=== PATIENT | female | born 1950 | race Caucasian/White ===

== ENCOUNTER 2017-06-02 10:28 | Inpatient (IN) | payer MEDICARE, MEDICAID ==
[~2017-06-02] VITALS: Ht 167.6 cm; Wt 82.8 kg
[~2017-06-02 10:28] MED LIST: ACET-784 PO; AMLO2.5T29 PO; ASPI-556 PO; AUD NEB; B CO1CAP4 PO; BIMA12.5OS OU; BISA-72 PR; BRIM155OS OU; CALC-866 PO; CHOL3000 PO; CLON0.1T PO; DIAZ2TAB3 PO; DSS100 PO; EPOE10I SQ; FERR-89 PO; FOLI1CAP2 PO; GABA-531 PO; HEP5KI SQ; HYDR-3965 PO; INSU100C6 SQ; IPRNEB IH; METO5TAB95 PO; PANT40TA PO; TIMO10DR28 OU; XALA2.5OS OU; [UNRECOGNIZED DRUG - CODE] SQ
[2017-06-02] MEDS ORDERED: 0.9% SODIUM CHLORIDE 10 ML SYRINGE IVP PRN (10:45)
[2017-06-02] MEDS ORDERED: IPRATROPIUM BROMIDE 0.5 MG/2.5 ML NEB SOLUTION NEB ONE (10:45)
[2017-06-02] MEDS ORDERED: ALBUTEROL SULFATE 5 MG/ML 20 ML NEB SOLN [BULK] NEB ONE (10:45)
[2017-06-02] MEDS ORDERED: AMLO-511 PO (10:48)
[2017-06-02] MEDS ORDERED: 0.9% SODIUM CHLORIDE 15 ML NEB SOLUTION NEB ONE (10:49)
[2017-06-02 11:12] LABS: BASOPHILS % (AUTO) 0.3 % (0.0-2.0); EOSINOPHILS % (AUTO) 0.4 % (1.0-6.0); HEMATOCRIT 38.4 % (36-46); HEMOGLOBIN 11.7 g/dL (12.0-16.0); LYMPHOCYTES # (AUTO) 0.6 K/uL (1.0-4.8); LYMPHOCYTES % (AUTO) 7.3 % (22.0-44.0); MEAN CORPUSCULAR HEMOGLOBIN 31.8 pg (26.0-34.0); MEAN CORPUSCULAR HGB CONC 30.4 G/dL (31.0-37.0); MEAN CORPUSCULAR VOLUME 105 fL (80-100); MONOCYTES # (AUTO) 0.5 K/uL (0.1-1.0); MONOCYTES % (AUTO) 6.2 % (2.0-9.0); NEUTROPHILS # (AUTO) 6.7 K/uL (1.8-7.7); PLATELET COUNT (AUTO) 138 K/uL (150-450); RED BLOOD CELL COUNT(AUTO) 3.67 MIL/uL (4.00-5.20); RED CELL DISTRIBUTION WIDTH 17.2 % (11.5-14.5)
[2017-06-02 11:18] LABS: ABG A-A DIFF O2 519.3 mmHg (10-20.0); ABG BASE EXCESS -1.2 mmol/L (-2.0-3.0); ABG CARBOXYHEMOGLOBIN 4.3 % (0.0-1.5); ABG HCO3 21.8 mmol/L (22.0-26.0); ABG METHEMOGLOBIN 0.2 % (0.0-1.5); ABG OXYGEN CONTENT 15.8 mL/dL (15.0-23.0); ABG OXYGEN SATURATION 96.6 % (95.0-98.0); ABG OXYHEMOGLOBIN 92.3 % (94.0-100.0); ABG TOTAL HEMOGLOBIN 12.1 G/dL (12.0-18.0); PO2, ARTERIAL BG 97.3 mmHg (79.0-87.0); SOURCE, BLOOD GAS ARTERIAL; TEMPERATURE, FAHRENHEIT, BG 99.3 FAHREN (96.0-98.6)
[2017-06-02 11:19] LABS: ABG PCO2 95 mmHg (35-45); ABG PH 7.095 (7.35-7.450); O2 DEVICE,BLOOD GAS NON REBREATHER (ROOM AIR); SITE, BLOOD GAS LFT RADIAL
[2017-06-02 11:20] LABS: NEUTROPHILS % (AUTO) 85.8 % (40.0-70.0)
[2017-06-02 11:27] LABS: INR 1.2 (0.9-1.1); PROTHROMBIN TIME 12.4 SEC (9.4-11.6)
[2017-06-02 11:32] LABS: CALCIUM, TOTAL 8.7 mg/dL (8.8-10.5); CREATININE 3.41 mg/dL (0.60-1.30); POTASSIUM 5.3 mmol/L (3.5-5.1)
[2017-06-02 11:39] LABS: ALBUMIN 3.5 g/dL (3.4-5.0); BILIRUBIN,TOTAL 0.5 mg/dL (0.1-1.0)
[2017-06-02] MEDS ORDERED: RAPID SEQUENCE KIT [RSI] 1 EACH KIT ONE (11:57)
[2017-06-02] MEDS ORDERED: SUCCINYLCHOLINE CHLORIDE 20 MG/ML 10 ML VIAL ONE (11:58)
[2017-06-02] MEDS ORDERED: ETOMIDATE 2 MG/ML 10 ML VIAL IVP ONE (12:00)
[2017-06-02] MEDS ORDERED: VECURONIUM BROMIDE 10 MG/VIAL IVP ONE (12:00)
[2017-06-02 12:08] LABS: INFLUENZA TYPE A NEGATIVE FOR TYPE A (NEGATIVE); INFLUENZA TYPE B NEGATIVE FOR TYPE B (NEGATIVE)
[2017-06-02] MEDS ORDERED: VANCOMYCIN HCL 1 GM/D5% WATER 200 ML IV ONE (12:15)
[2017-06-02] MEDS ORDERED: PIPERACILLIN/TAZO 3.375 GM/D5W 50 ML IV ONE (12:15)
[2017-06-02 12:29] LABS: LACTIC ACID 0.7 mmol/L (0.4-2.0)
[2017-06-02 13:00] LABS: THYROID STIMULATING HORMONE 0.46 uIU/mL (0.36-3.74)
[2017-06-02] MEDS ORDERED: NITROGLYCERIN 2% (1 GM=INCH) PACKET TP ONE (13:00)
[2017-06-02] MEDS ORDERED: GENTAMICIN 120 MG/NACL ISO-OSM 100 ML IV ONE (13:00)
[2017-06-02 13:56] LABS: ABG A-A DIFF O2 170.4 mmHg (10-20.0); ABG BASE EXCESS -2.5 mmol/L (-2.0-3.0); ABG HCO3 22.6 mmol/L (22.0-26.0); ABG METHEMOGLOBIN 0.1 % (0.0-1.5); ABG OXYGEN CONTENT 14.8 mL/dL (15.0-23.0); ABG OXYGEN SATURATION 95.9 % (95.0-98.0); ABG PCO2 39 mmHg (35-45); ABG PH 7.385 (7.35-7.450); ABG TOTAL HEMOGLOBIN 11.4 G/dL (12.0-18.0); PO2, ARTERIAL BG 70.2 mmHg (79.0-87.0); SOURCE, BLOOD GAS ARTERIAL; TEMPERATURE, FAHRENHEIT, BG 99.2 FAHREN (96.0-98.6)
[2017-06-02 13:57] LABS: O2 DEVICE,BLOOD GAS VENTILATOR (ROOM AIR); PEEP,BG 5 cm H2O; SITE, BLOOD GAS LFT RADIAL; VT, ABG 500 ml
[2017-06-02] MEDS: PROPOFOL 1000 MG/ISO-OSM 100 ML IV PRN ×2 (14:28→21:40)
[2017-06-02] MEDS ORDERED: ACETAMINOPHEN 650 MG RECTAL SUPPOSITORY PR ONE (15:45)
[2017-06-02 16:32] LABS: PLATELET MORPHOLOGY COMMENT DECREASED
[2017-06-02] MEDS ORDERED: IBUPROFEN 800 MG TABLET PO ONE (18:00)
[2017-06-02] MEDS ORDERED: MAGNESIUM HYDROXIDE SUSPENSION 30 ML UDCUP PO PRN (18:45)
[2017-06-02] MEDS ORDERED: BISACODYL 10 MG RECTAL RECTAL SUPPOSITORY PR PRN (18:45)
[2017-06-02] MEDS ORDERED: ONDANSETRON HCL 4 MG/2 ML VIAL IVP PRN (18:45)
[2017-06-02] MEDS ORDERED: DEXTROSE 50%-WATER 25 GM/50 ML SYRINGE IVP PRN (19:00)
[2017-06-02 20:50] VITALS: BP 140/80
[2017-06-02] MEDS: BIMATOPROST 0.01% 2.5 ML OPHTHALMIC SOLUTION OU SCH (21:37)
[2017-06-02] MEDS: HEPARIN SODIUM,PORCINE 5,000 UNITS/ML VIAL SQ SCH (21:37)
[2017-06-02] MEDS: BRIMONIDINE TARTRATE 0.15% 5 ML OPHTHALMIC SOLUTION OU SCH (21:37)
[2017-06-02 22:00] VITALS: BP 145/82
[2017-06-03] VITALS (9 sets, daily range): BP systolic 96–182; BP diastolic 69–94
[2017-06-03 05:22] LABS: BASOPHILS # (AUTO) 0.04 K/uL (0.00-0.20); BASOPHILS % (AUTO) 0.7 % (0.0-2.0); EOSINOPHILS # (AUTO) 0.15 K/uL (0.00-0.70); EOSINOPHILS % (AUTO) 2.55 % (1.0-6.0); HEMATOCRIT 35.4 % (36-46); HEMOGLOBIN 10.8 g/dL (12.0-16.0); LYMPHOCYTES # (AUTO) 0.8 K/uL (1.0-4.8); LYMPHOCYTES % (AUTO) 13.9 % (22.0-44.0); MEAN CORPUSCULAR HEMOGLOBIN 31.2 pg (26.0-34.0); MEAN CORPUSCULAR HGB CONC 30.5 G/dL (31.0-37.0); MEAN CORPUSCULAR VOLUME 102 fL (80-100); MONOCYTES # (AUTO) 0.6 K/uL (0.1-1.0); MONOCYTES % (AUTO) 10.2 % (2.0-9.0); NEUTROPHILS # (AUTO) 4.4 K/uL (1.8-7.7); NEUTROPHILS % (AUTO) 72.7 % (40.0-70.0); PLATELET COUNT (AUTO) 140 K/uL (150-450); RED BLOOD CELL COUNT(AUTO) 3.47 MIL/uL (4.00-5.20); RED CELL DISTRIBUTION WIDTH 16.5 % (11.5-14.5)
[2017-06-03] MEDS: PROPOFOL 1000 MG/ISO-OSM 100 ML IV PRN ×3 (05:28→18:17)
[2017-06-03 05:47] LABS: ANION GAP 9 mmol/L (8-16); CALCIUM, TOTAL 8.5 mg/dL (8.8-10.5); CARBON DIOXIDE 25 mmol/L (22-29); CHLORIDE 99 mmol/L (98-107); CHOL/HDL RATIO 1.7 (3.9-5.7); CHOLESTEROL 57 mg/dL (131-200); CREATINE KINASE, TOTAL 15 U/L (26-192); CREATININE 4.03 mg/dL (0.60-1.30); FREE T4 (FREE THYROXINE) 1.11 ng/dL (0.76-1.46); GLOMERULAR FILTR. RATE CALC 11 mL/min (>60); GLUCOSE,RANDOM 115 mg/dL (70-110); HDL CHOLESTEROL 34 mg/dL (40-60); LDL CHOL (CALC.) 2 mg/dL (0-130); POTASSIUM 4.6 mmol/L (3.5-5.1); SODIUM SERUM 133 mmol/L (136-145); TRIGLYCERIDES 103 mg/dL (15-150); UREA NITROGEN, BLOOD 38 mg/dL (7-18)
[2017-06-03 06:09] LABS: HEMOGLOBIN A1C 5.2 % (4.5-6.2)
[2017-06-03 06:12] LABS: THYROID STIMULATING HORMONE 0.21 uIU/mL (0.36-3.74)
[2017-06-03 06:19] LABS: PHOSPHORUS 1.2 mg/dL (2.5-4.9)
[2017-06-03] MEDS ORDERED: SODIUM PHOS,M-BASIC-D-BASIC 20 MEQ in DEXTROSE 5%-WATER 100 ML IV ONE (06:45)
[2017-06-03] MEDS ORDERED: SODIUM CHLORIDE 0.9% 100 ML ONE (08:14)
[2017-06-03] MEDS ORDERED: IOVERSOL 350 MG/ML 100 ML VIAL ONE (08:14)
[2017-06-03] MEDS ORDERED: SODIUM CHLORIDE 0.9% 250 ML IV ONE (08:16)
[2017-06-03] MEDS: HEPARIN SODIUM,PORCINE 5,000 UNITS/ML VIAL SQ SCH ×2 (08:22→21:03)
[2017-06-03] MEDS: PANTOPRAZOLE SODIUM 40 MG/VIAL IVP SCH (08:22)
[2017-06-03] MEDS: DORZOLAMIDE/TIMOLOL 2-0.5% [22.3-6.8MG/ML] 10 ML OPHTHALMIC SOLUTION OU SCH (08:23)
[2017-06-03] MEDS: LATANOPROST 0.005% 2.5 ML OPHTHALMIC SOLUTION OU SCH (08:23)
[2017-06-03] MEDS: BRIMONIDINE TARTRATE 0.15% 5 ML OPHTHALMIC SOLUTION OU SCH ×2 (08:23→21:03)
[2017-06-03 08:39] LABS: FOLATE SERUM 6.3 ng/mL (5.4-)
[2017-06-03 14:05] LABS: ABG A-A DIFF O2 136.7 mmHg (10-20.0); ABG BASE EXCESS -1.2 mmol/L (-2.0-3.0); ABG CARBOXYHEMOGLOBIN 2.9 % (0.0-1.5); ABG HCO3 24.3 mmol/L (22.0-26.0); ABG METHEMOGLOBIN 0.1 % (0.0-1.5); ABG OXYGEN CONTENT 16.3 mL/dL (15.0-23.0); ABG OXYGEN SATURATION 99.1 % (95.0-98.0); ABG OXYHEMOGLOBIN 96.1 % (94.0-100.0); ABG PCO2 28 mmHg (35-45); ABG PH 7.515 (7.35-7.450); ABG TOTAL HEMOGLOBIN 11.9 G/dL (12.0-18.0); PO2, ARTERIAL BG 116.9 mmHg (79.0-87.0); SOURCE, BLOOD GAS ARTERIAL; TEMPERATURE, FAHRENHEIT, BG 98.6 FAHREN (96.0-98.6)
[2017-06-03 14:08] LABS: SITE, BLOOD GAS LFT RADIAL
[2017-06-03 14:09] LABS: O2 DEVICE,BLOOD GAS VENTILATOR (ROOM AIR); PEEP,BG 5 cm H2O; VT, ABG 500 ml
[2017-06-03] MEDS ORDERED: SODIUM CHLORIDE 0.9% 2,000 ML IV ONE (16:52)
[2017-06-03] MEDS ORDERED: VANCOMYCIN HCL 1 GM/D5% WATER 200 ML IV PRN (17:00)
[2017-06-03] MEDS ORDERED: PIPERACILLIN SODIUM/TAZOBACTAM 0.75 GM in DEXTROSE 5%-WATER 50 ML IV PRN (17:00)
[2017-06-03] MEDS: PIPERACILLIN SODIUM/TAZOBACTAM 2.25 GM in DEXTROSE 5%-WATER 50 ML IV SCH (17:57)
[2017-06-03] MEDS: BIMATOPROST 0.01% 2.5 ML OPHTHALMIC SOLUTION OU SCH (21:03)
[2017-06-03] MEDS: APIXABAN 5 MG TABLET PO SCH (21:45)
[2017-06-04] VITALS (12 sets, daily range): BP systolic 114–162; BP diastolic 70–84
[2017-06-04] MEDS: PROPOFOL 1000 MG/ISO-OSM 100 ML IV PRN ×4 (00:15→17:20)
[2017-06-04] MEDS: PIPERACILLIN SODIUM/TAZOBACTAM 2.25 GM in DEXTROSE 5%-WATER 50 ML IV SCH ×3 (00:15→17:05)
[2017-06-04 06:07] LABS: BASOPHILS % (AUTO) 0.5 % (0.0-2.0); EOSINOPHILS % (AUTO) 5.9 % (1.0-6.0); HEMATOCRIT 36.8 % (36-46); LYMPHOCYTES % (AUTO) 16.8 % (22.0-44.0); MEAN CORPUSCULAR HEMOGLOBIN 31.9 pg (26.0-34.0); MEAN CORPUSCULAR HGB CONC 32.6 G/dL (31.0-37.0); MEAN CORPUSCULAR VOLUME 98 fL (80-100); MONOCYTES # (AUTO) 0.6 K/uL (0.1-1.0); NEUTROPHILS # (AUTO) 3.8 K/uL (1.8-7.7); NEUTROPHILS % (AUTO) 66.8 % (40.0-70.0); PLATELET COUNT (AUTO) 163 K/uL (150-450); RED BLOOD CELL COUNT(AUTO) 3.76 MIL/uL (4.00-5.20); RED CELL DISTRIBUTION WIDTH 16.8 % (11.5-14.5)
[2017-06-04 06:29] LABS: CALCIUM, TOTAL 8.4 mg/dL (8.8-10.5); CREATININE 2.58 mg/dL (0.60-1.30); MAGNESIUM 1.6 mg/dL (1.80-2.40); POTASSIUM 3.8 mmol/L (3.5-5.1); VANCOMYCIN,RANDOM 15.1 mcg/mL (25.0-50.0)
[2017-06-04] MEDS ORDERED: VANCOMYCIN HCL 1 GM/D5% WATER 200 ML IV ONE (08:00)
[2017-06-04] MEDS: HEPARIN SODIUM,PORCINE 5,000 UNITS/ML VIAL SQ SCH ×2 (08:26→21:12)
[2017-06-04] MEDS: PANTOPRAZOLE SODIUM 40 MG/VIAL IVP SCH (08:26)
[2017-06-04] MEDS: APIXABAN 5 MG TABLET PO SCH ×2 (08:26→21:12)
[2017-06-04] MEDS: DORZOLAMIDE/TIMOLOL 2-0.5% [22.3-6.8MG/ML] 10 ML OPHTHALMIC SOLUTION OU SCH (08:27)
[2017-06-04] MEDS: LATANOPROST 0.005% 2.5 ML OPHTHALMIC SOLUTION OU SCH (08:28)
[2017-06-04] MEDS: BRIMONIDINE TARTRATE 0.15% 5 ML OPHTHALMIC SOLUTION OU SCH ×2 (08:28→21:14)
[2017-06-04] MEDS ORDERED: SODIUM CHLORIDE 0.9% 250 ML IV ONE ×3 (09:52→16:31)
[2017-06-04 10:28] LABS: GLUCOSE,POINT OF CARE 113 MG/DL (70-110)
[2017-06-04 10:28] LABS: GLUCOSE,POINT OF CARE 105 MG/DL (70-110)
[2017-06-04] MEDS: MORPHINE SULFATE 2 MG/ML SYRINGE IVP PRN (11:25)
[2017-06-04 14:05] LABS: ABG A-A DIFF O2 92.7 mmHg (10-20.0); ABG BASE EXCESS -6.6 mmol/L (-2.0-3.0); ABG CARBOXYHEMOGLOBIN 2.8 % (0.0-1.5); ABG HCO3 20.6 mmol/L (22.0-26.0); ABG METHEMOGLOBIN 0.1 % (0.0-1.5); ABG OXYGEN CONTENT 16.6 mL/dL (15.0-23.0); ABG OXYHEMOGLOBIN 95.2 % (94.0-100.0); ABG PCO2 21 mmHg (35-45); ABG TOTAL HEMOGLOBIN 12.3 G/dL (12.0-18.0); O2 DEVICE,BLOOD GAS VENTILATOR (ROOM AIR); PO2, ARTERIAL BG 96.6 mmHg (79.0-87.0); SITE, BLOOD GAS LFT RADIAL; SOURCE, BLOOD GAS ARTERIAL; TEMPERATURE, FAHRENHEIT, BG 97.9 FAHREN (96.0-98.6)
[2017-06-04 14:07] LABS: PEEP,BG 5 cm H2O; VT, ABG 500 ml
[2017-06-04 15:57] LABS: AMPHET/METH SCREEN,URINE NEGATIVE (NEGATIVE); BARBITURATE SCREEN, URINE NEGATIVE (NEGATIVE); BENZODIAZEPINES SCREEN,URINE POSITIVE (NEGATIVE); CANNABINOID SCREEN,URINE NEGATIVE (NEGATIVE); COCAINE SCREEN,URINE NEGATIVE (NEGATIVE); METHADONE SCREEN, URINE NEGATIVE (NEGATIVE); OPIATE SCREEN,URINE NEGATIVE (NEGATIVE)
[2017-06-04 15:58] LABS: PHENCYCLIDINE SCREEN,URINE NEGATIVE (NEGATIVE)
[2017-06-04 16:17] LABS: APPEARANCE,URINE CLOUDY (CLEAR); GLUCOSE, URINE (UA) NEGATIVE (NEGATIVE); KETONES,URINE 15 mg/dL (NEGATIVE); LEUKOCYTE ESTERASE ,URINE SMALL (NEGATIVE); NITRATE,URINE NEGATIVE (NEGATIVE); OCCULT BLOOD,URINE SMALL (NEGATIVE); PH,URINE 5.5 (5.0-8.0); PROTEIN,URINE SEE CONFIRM (NEGATIVE); UROBILINOGEN,URINE 0.2 mg/dL (<=1.0)
[2017-06-04 16:27] LABS: BACTERIA,URINE Few /HPF (None Seen); BILIRUBIN,URINE PRELIM. POSITIVE (NEGATIVE); SQUAMOUS EPITHELIAL CELL,UR Moderate /LPF (None Seen); SULFOSALICYLIC ACID,URINE 3+ (Negative)
[2017-06-04 16:28] LABS: RENAL EPITHELIAL CELLS,URINE Few /LPF (None Seen)
[2017-06-04 17:47] LABS: GLUCOSE,POINT OF CARE 123 MG/DL (70-110)
[2017-06-04 18:33] LABS: GLUCOSE,POINT OF CARE 99 MG/DL (70-110)
[2017-06-04 18:52] LABS: GLUCOSE,POINT OF CARE 105 MG/DL (70-110)
[2017-06-04 18:53] LABS: GLUCOSE,POINT OF CARE 129 MG/DL (70-110)
[2017-06-04 18:53] LABS: GLUCOSE,POINT OF CARE 122 MG/DL (70-110)
[2017-06-04 18:53] LABS: GLUCOSE,POINT OF CARE 106 MG/DL (70-110)
[2017-06-04] MEDS: BIMATOPROST 0.01% 2.5 ML OPHTHALMIC SOLUTION OU SCH (21:14)
[2017-06-05] VITALS: BP 121/74
[2017-06-05] MEDS: PIPERACILLIN SODIUM/TAZOBACTAM 2.25 GM in DEXTROSE 5%-WATER 50 ML IV SCH ×3 (00:34→17:51)
[2017-06-05] MEDS: PROPOFOL 1000 MG/ISO-OSM 100 ML IV PRN ×3 (03:30→17:52)
[2017-06-05] MEDS ORDERED: SODIUM CHLORIDE 0.9% 250 ML IV ONE (03:54)
[2017-06-05 04:00] VITALS: BP 117/74
[2017-06-05 04:52] LABS: GLUCOSE,POINT OF CARE 119 MG/DL (70-110)
[2017-06-05 06:07] LABS: ANION GAP 15 mmol/L (8-16); CALCIUM, TOTAL 8.1 mg/dL (8.8-10.5); CARBON DIOXIDE 22 mmol/L (22-29); CHLORIDE 95 mmol/L (98-107); CREATINE KINASE, TOTAL 28 U/L (26-192); CREATININE 3.15 mg/dL (0.60-1.30); GLOMERULAR FILTR. RATE CALC 15 mL/min (>60); GLUCOSE,RANDOM 145 mg/dL (70-110); POTASSIUM 3.9 mmol/L (3.5-5.1); SODIUM SERUM 132 mmol/L (136-145); UREA NITROGEN, BLOOD 35 mg/dL (7-18)
[2017-06-05 06:54] LABS: BASOPHILS % (AUTO) 0.4 % (0.0-2.0); EOSINOPHILS % (AUTO) 7.3 % (1.0-6.0); HEMATOCRIT 36.1 % (36-46); HEMOGLOBIN 11.7 g/dL (12.0-16.0); LYMPHOCYTES # (AUTO) 1.2 K/uL (1.0-4.8); LYMPHOCYTES % (AUTO) 18.5 % (22.0-44.0); MEAN CORPUSCULAR HEMOGLOBIN 31.8 pg (26.0-34.0); MEAN CORPUSCULAR HGB CONC 32.5 G/dL (31.0-37.0); MEAN CORPUSCULAR VOLUME 98 fL (80-100); MONOCYTES # (AUTO) 0.5 K/uL (0.1-1.0); MONOCYTES % (AUTO) 7.5 % (2.0-9.0); NEUTROPHILS # (AUTO) 4.4 K/uL (1.8-7.7); NEUTROPHILS % (AUTO) 66.3 % (40.0-70.0); PLATELET COUNT (AUTO) 163 K/uL (150-450); RED BLOOD CELL COUNT(AUTO) 3.69 MIL/uL (4.00-5.20); RED CELL DISTRIBUTION WIDTH 16.8 % (11.5-14.5)
[2017-06-05 07:22] LABS: GLUCOSE,POINT OF CARE 130 MG/DL (70-110)
[2017-06-05 08:00] VITALS: BP 124/64
[2017-06-05 08:33] LABS: ABG A-A DIFF O2 84.6 mmHg (10-20.0); ABG BASE EXCESS -3.8 mmol/L (-2.0-3.0); ABG CARBOXYHEMOGLOBIN 3.5 % (0.0-1.5); ABG HCO3 22.5 mmol/L (22.0-26.0); ABG METHEMOGLOBIN 0.1 % (0.0-1.5); ABG OXYGEN CONTENT 16.5 mL/dL (15.0-23.0); ABG OXYGEN SATURATION 98.2 % (95.0-98.0); ABG OXYHEMOGLOBIN 94.7 % (94.0-100.0); ABG PCO2 26 mmHg (35-45); ABG PH 7.497 (7.35-7.450); ABG TOTAL HEMOGLOBIN 12.3 G/dL (12.0-18.0); PO2, ARTERIAL BG 99.1 mmHg (79.0-87.0); SOURCE, BLOOD GAS ARTERIAL; TEMPERATURE, FAHRENHEIT, BG 98.6 FAHREN (96.0-98.6)
[2017-06-05 08:40] LABS: O2 DEVICE,BLOOD GAS VENTILATOR (ROOM AIR); SITE, BLOOD GAS LFT RADIAL
[2017-06-05 08:41] LABS: PEEP,BG 5 cm H2O; VT, ABG 500 ml
[2017-06-05] MEDS: PANTOPRAZOLE SODIUM 40 MG/VIAL IVP SCH (08:49)
[2017-06-05] MEDS: APIXABAN 5 MG TABLET PO SCH ×2 (08:49→22:05)
[2017-06-05] MEDS: HEPARIN SODIUM,PORCINE 5,000 UNITS/ML VIAL SQ SCH ×2 (08:49→22:06)
[2017-06-05] MEDS: BRIMONIDINE TARTRATE 0.15% 5 ML OPHTHALMIC SOLUTION OU SCH ×2 (08:53→22:04)
[2017-06-05] MEDS: BIMATOPROST 0.01% 2.5 ML OPHTHALMIC SOLUTION OU SCH (08:53)
[2017-06-05] MEDS: LATANOPROST 0.005% 2.5 ML OPHTHALMIC SOLUTION OU SCH (08:54)
[2017-06-05] MEDS: DORZOLAMIDE/TIMOLOL 2-0.5% [22.3-6.8MG/ML] 10 ML OPHTHALMIC SOLUTION OU SCH (08:54)
[2017-06-05 12:00] VITALS: BP 129/71
[2017-06-05] MEDS: ACETAMINOPHEN 325 MG TABLET PO PRN (12:30)
[2017-06-05] MEDS: INSULIN REGULAR, HUMAN 100 UNITS/ML SQ PRN (14:11)
[2017-06-05 16:00] VITALS: BP 72/54
[2017-06-05] MEDS ORDERED: PHENYLEPHRINE 200 MG/D5%-WATER 250 ML IV PRN (16:35)
[2017-06-05 20:00] VITALS: BP 154/126
[2017-06-06] VITALS: BP 128/76
[2017-06-06] MEDS: PIPERACILLIN SODIUM/TAZOBACTAM 2.25 GM in DEXTROSE 5%-WATER 50 ML IV SCH ×3 (00:53→17:30)
[2017-06-06] MEDS: INSULIN REGULAR, HUMAN 100 UNITS/ML SQ PRN ×4 (01:02→17:30)
[2017-06-06] MEDS: PROPOFOL 1000 MG/ISO-OSM 100 ML IV PRN ×3 (02:31→21:43)
[2017-06-06 04:00] VITALS: BP 132/68
[2017-06-06 08:00] VITALS: BP 143/58
[2017-06-06 08:08] LABS: BASOPHILS # (AUTO) 0.04 K/uL (0.00-0.20); BASOPHILS % (AUTO) 0.6 % (0.0-2.0); EOSINOPHILS # (AUTO) 0.48 K/uL (0.00-0.70); EOSINOPHILS % (AUTO) 6.77 % (1.0-6.0); HEMATOCRIT 37.2 % (36-46); HEMOGLOBIN 12.1 g/dL (12.0-16.0); LYMPHOCYTES # (AUTO) 1.8 K/uL (1.0-4.8); LYMPHOCYTES % (AUTO) 25.4 % (22.0-44.0); MEAN CORPUSCULAR HEMOGLOBIN 32.1 pg (26.0-34.0); MEAN CORPUSCULAR HGB CONC 32.7 G/dL (31.0-37.0); MEAN CORPUSCULAR VOLUME 98 fL (80-100); MONOCYTES # (AUTO) 0.8 K/uL (0.1-1.0); MONOCYTES % (AUTO) 11.2 % (2.0-9.0); NEUTROPHILS % (AUTO) 56.1 % (40.0-70.0); PLATELET COUNT (AUTO) 148 K/uL (150-450); RED BLOOD CELL COUNT(AUTO) 3.78 MIL/uL (4.00-5.20)
[2017-06-06] MEDS: HEPARIN SODIUM,PORCINE 5,000 UNITS/ML VIAL SQ SCH ×2 (09:08→21:42)
[2017-06-06] MEDS: PANTOPRAZOLE SODIUM 40 MG/VIAL IVP SCH (09:08)
[2017-06-06] MEDS: APIXABAN 5 MG TABLET PO SCH ×2 (09:08→21:42)
[2017-06-06] MEDS: BRIMONIDINE TARTRATE 0.15% 5 ML OPHTHALMIC SOLUTION OU SCH ×2 (09:10→21:37)
[2017-06-06] MEDS: DORZOLAMIDE/TIMOLOL 2-0.5% [22.3-6.8MG/ML] 10 ML OPHTHALMIC SOLUTION OU SCH (09:11)
[2017-06-06] MEDS: LATANOPROST 0.005% 2.5 ML OPHTHALMIC SOLUTION OU SCH (09:12)
[2017-06-06 12:00] VITALS: BP 111/55
[2017-06-06 12:21] LABS: CALCIUM, TOTAL 7.7 mg/dL (8.8-10.5); CREATININE 2.29 mg/dL (0.60-1.30); MAGNESIUM 1.6 mg/dL (1.80-2.40); POTASSIUM 3.4 mmol/L (3.5-5.1)
[2017-06-06 12:23] LABS: PHOSPHORUS 1.3 mg/dL (2.5-4.9)
[2017-06-06] MEDS ORDERED: SODIUM PHOS,M-BASIC-D-BASIC 20 MEQ in DEXTROSE 5%-WATER 100 ML IV ONE (12:30)
[2017-06-06 13:44] LABS: C.DIFF GDH ANTIGEN, Stool Negative (Negative); C.DIFF TOXINS A&B, Stool Negative (Negative)
[2017-06-06 14:18] LABS: ABG A-A DIFF O2 79.9 mmHg (10-20.0); ABG BASE EXCESS 1.4 mmol/L (-2.0-3.0); ABG CARBOXYHEMOGLOBIN 2.9 % (0.0-1.5); ABG HCO3 25.4 mmol/L (22.0-26.0); ABG METHEMOGLOBIN 0.2 % (0.0-1.5); ABG OXYGEN CONTENT 15.6 mL/dL (15.0-23.0); ABG OXYGEN SATURATION 95.3 % (95.0-98.0); ABG OXYHEMOGLOBIN 92.3 % (94.0-100.0); ABG PCO2 46 mmHg (35-45); ABG PH 7.381 (7.35-7.450); SOURCE, BLOOD GAS ARTERIAL; TEMPERATURE, FAHRENHEIT, BG 98.9 FAHREN (96.0-98.6)
[2017-06-06 14:19] LABS: O2 DEVICE,BLOOD GAS VENTILATOR (ROOM AIR); PEEP,BG 0 cm H2O; PRESSURE SUPPORT, BG 8 cm H2O; SPONTANEOUS VT, BG 300 ml; VENT MODE, BG SPONTANEOUS (ROOM AIR)
[2017-06-06 14:20] LABS: SITE, BLOOD GAS LFT RADIAL
[2017-06-06 16:00] VITALS: BP 153/92
[2017-06-06] MEDS ORDERED: SODIUM CHLORIDE 0.9% 250 ML IV ONE ×2 (18:05→21:33)
[2017-06-06 18:13] LABS: GLUCOSE,POINT OF CARE 172 MG/DL (70-110)
[2017-06-06 20:00] VITALS: BP 139/80
[2017-06-06] MEDS: BIMATOPROST 0.01% 2.5 ML OPHTHALMIC SOLUTION OU SCH (21:42)
[2017-06-07] VITALS: BP 145/94
[2017-06-07] MEDS: PIPERACILLIN SODIUM/TAZOBACTAM 2.25 GM in DEXTROSE 5%-WATER 50 ML IV SCH ×3 (01:02→17:20)
[2017-06-07] MEDS: INSULIN REGULAR, HUMAN 100 UNITS/ML SQ PRN ×4 (01:04→17:23)
[2017-06-07] MEDS: PROPOFOL 1000 MG/ISO-OSM 100 ML IV PRN ×2 (03:48→12:32)
[2017-06-07 04:00] VITALS: BP 145/77
[2017-06-07 06:01] LABS: BASOPHILS % (AUTO) 0.7 % (0.0-2.0); EOSINOPHILS % (AUTO) 11.4 % (1.0-6.0); HEMATOCRIT 37.4 % (36-46); HEMOGLOBIN 12.3 g/dL (12.0-16.0); LYMPHOCYTES # (AUTO) 1.3 K/uL (1.0-4.8); LYMPHOCYTES % (AUTO) 18.8 % (22.0-44.0); MEAN CORPUSCULAR HGB CONC 32.8 G/dL (31.0-37.0); MEAN CORPUSCULAR VOLUME 98 fL (80-100); MONOCYTES # (AUTO) 0.5 K/uL (0.1-1.0); MONOCYTES % (AUTO) 8.1 % (2.0-9.0); NEUTROPHILS # (AUTO) 4.1 K/uL (1.8-7.7); PLATELET COUNT (AUTO) 211 K/uL (150-450); RED BLOOD CELL COUNT(AUTO) 3.83 MIL/uL (4.00-5.20)
[2017-06-07 07:27] LABS: GLUCOSE,POINT OF CARE 192 MG/DL (70-110)
[2017-06-07 08:00] VITALS: BP 164/94
[2017-06-07 08:23] LABS: GLUCOSE,POINT OF CARE 144 MG/DL (70-110)
[2017-06-07 08:23] LABS: GLUCOSE,POINT OF CARE 217 MG/DL (70-110)
[2017-06-07 08:23] LABS: GLUCOSE,POINT OF CARE 148 MG/DL (70-110)
[2017-06-07 08:23] LABS: GLUCOSE,POINT OF CARE 201 MG/DL (70-110)
[2017-06-07 08:27] LABS: GLUCOSE,POINT OF CARE 217 MG/DL (70-110)
[2017-06-07] MEDS: APIXABAN 5 MG TABLET PO SCH ×2 (08:38→21:24)
[2017-06-07] MEDS: HEPARIN SODIUM,PORCINE 5,000 UNITS/ML VIAL SQ SCH ×2 (08:39→21:24)
[2017-06-07] MEDS: PANTOPRAZOLE SODIUM 40 MG/VIAL IVP SCH (08:39)
[2017-06-07] MEDS: BRIMONIDINE TARTRATE 0.15% 5 ML OPHTHALMIC SOLUTION OU SCH ×2 (08:40→21:24)
[2017-06-07] MEDS: DORZOLAMIDE/TIMOLOL 2-0.5% [22.3-6.8MG/ML] 10 ML OPHTHALMIC SOLUTION OU SCH (08:40)
[2017-06-07] MEDS: LATANOPROST 0.005% 2.5 ML OPHTHALMIC SOLUTION OU SCH (08:40)
[2017-06-07 10:21] LABS: ABG A-A DIFF O2 90.5 mmHg (10-20.0); ABG BASE EXCESS -2.6 mmol/L (-2.0-3.0); ABG CARBOXYHEMOGLOBIN 2.7 % (0.0-1.5); ABG HCO3 23.5 mmol/L (22.0-26.0); ABG METHEMOGLOBIN 0.1 % (0.0-1.5); ABG OXYGEN CONTENT 16.8 mL/dL (15.0-23.0); ABG OXYGEN SATURATION 97.8 % (95.0-98.0); ABG OXYHEMOGLOBIN 95.1 % (94.0-100.0); ABG PCO2 24 mmHg (35-45); ABG PH 7.536 (7.35-7.450); ABG TOTAL HEMOGLOBIN 12.5 G/dL (12.0-18.0); PO2, ARTERIAL BG 95.2 mmHg (79.0-87.0); SOURCE, BLOOD GAS ARTERIAL
[2017-06-07 10:22] LABS: O2 DEVICE,BLOOD GAS VENTILATOR (ROOM AIR); PEEP,BG 5 cm H2O; SITE, BLOOD GAS LFT RADIAL; VT, ABG 500 ml
[2017-06-07 10:55] LABS: CREATININE 3.23 mg/dL (0.60-1.30); MAGNESIUM 1.8 mg/dL (1.80-2.40); PHOSPHORUS 2.7 mg/dL (2.5-4.9); VANCOMYCIN,RANDOM 18.3 mcg/mL (25.0-50.0)
[2017-06-07 10:58] LABS: POTASSIUM 2.9 mmol/L (3.5-5.1)
[2017-06-07] MEDS ORDERED: POTASSIUM CHL 20 MEQ/0.9% NS 1,000 ML IV ONE (11:15)
[2017-06-07 12:00] VITALS: BP 143/55
[2017-06-07] MEDS ORDERED: VANCOMYCIN HCL 1 GM/D5% WATER 200 ML IV ONE (12:00)
[2017-06-07 12:15] LABS: C.DIFF GDH ANTIGEN, Stool Negative (Negative); C.DIFF TOXINS A&B, Stool Negative (Negative)
[2017-06-07] MEDS: POTASSIUM CHL 10 MEQ/WATER 50 ML IV SCH ×2 (14:08→15:47)
[2017-06-07] MEDS: HydrALAZINE HCL 20 MG/ML VIAL IVP PRN (15:05)
[2017-06-07 16:00] VITALS: BP 136/83
[2017-06-07 17:09] LABS: ABG A-A DIFF O2 66.3 mmHg (10-20.0); ABG BASE EXCESS -1.7 mmol/L (-2.0-3.0); ABG CARBOXYHEMOGLOBIN 3.2 % (0.0-1.5); ABG HCO3 22.9 mmol/L (22.0-26.0); ABG METHEMOGLOBIN 0.2 % (0.0-1.5); ABG OXYGEN CONTENT 17.1 mL/dL (15.0-23.0); ABG OXYGEN SATURATION 96.4 % (95.0-98.0); ABG OXYHEMOGLOBIN 93.1 % (94.0-100.0); ABG PCO2 46 mmHg (35-45); ABG PH 7.335 (7.35-7.450); PO2, ARTERIAL BG 93.1 mmHg (79.0-87.0); SOURCE, BLOOD GAS ARTERIAL; TEMPERATURE, FAHRENHEIT, BG 98.6 FAHREN (96.0-98.6)
[2017-06-07 17:10] LABS: O2 DEVICE,BLOOD GAS VENTILATOR (ROOM AIR); SITE, BLOOD GAS LFT RADIAL; VENT MODE, BG CPAP (ROOM AIR)
[2017-06-07 20:00] VITALS: BP 145/67
[2017-06-07] MEDS ORDERED: SODIUM CHLORIDE 0.9% 250 ML IV ONE (21:19)
[2017-06-07] MEDS: BIMATOPROST 0.01% 2.5 ML OPHTHALMIC SOLUTION OU SCH (21:24)
[2017-06-07 22:13] LABS: GLUCOSE,POINT OF CARE 202 MG/DL (70-110)
[2017-06-08] VITALS: BP 153/88
[2017-06-08] MEDS: PIPERACILLIN SODIUM/TAZOBACTAM 2.25 GM in DEXTROSE 5%-WATER 50 ML IV SCH ×3 (00:47→16:52)
[2017-06-08] MEDS: INSULIN REGULAR, HUMAN 100 UNITS/ML SQ PRN ×6 (00:49→23:51)
[2017-06-08] MEDS: PROPOFOL 1000 MG/ISO-OSM 100 ML IV PRN ×3 (01:48→16:54)
[2017-06-08 04:00] VITALS: BP 155/79
[2017-06-08 06:58] LABS: GLUCOSE,POINT OF CARE 208 MG/DL (70-110)
[2017-06-08 06:58] LABS: GLUCOSE,POINT OF CARE 193 MG/DL (70-110)
[2017-06-08 07:01] LABS: BASOPHILS % (AUTO) 0.6 % (0.0-2.0); EOSINOPHILS % (AUTO) 11.3 % (1.0-6.0); HEMATOCRIT 38.6 % (36-46); HEMOGLOBIN 12.6 g/dL (12.0-16.0); LYMPHOCYTES # (AUTO) 1.6 K/uL (1.0-4.8); LYMPHOCYTES % (AUTO) 17.7 % (22.0-44.0); MEAN CORPUSCULAR HEMOGLOBIN 31.4 pg (26.0-34.0); MEAN CORPUSCULAR HGB CONC 32.7 G/dL (31.0-37.0); MEAN CORPUSCULAR VOLUME 96 fL (80-100); MONOCYTES # (AUTO) 0.7 K/uL (0.1-1.0); MONOCYTES % (AUTO) 8.2 % (2.0-9.0); NEUTROPHILS # (AUTO) 5.5 K/uL (1.8-7.7); NEUTROPHILS % (AUTO) 62.2 % (40.0-70.0); PLATELET COUNT (AUTO) 173 K/uL (150-450); RED BLOOD CELL COUNT(AUTO) 4.02 MIL/uL (4.00-5.20); RED CELL DISTRIBUTION WIDTH 16.9 % (11.5-14.5)
[2017-06-08 07:05] LABS: CALCIUM, TOTAL 8.6 mg/dL (8.8-10.5); CREATININE 3.42 mg/dL (0.60-1.30); MAGNESIUM 1.9 mg/dL (1.80-2.40); POTASSIUM 3.4 mmol/L (3.5-5.1)
[2017-06-08] MEDS ORDERED: SODIUM CHLORIDE 0.9% 1,000 ML IV ONE (07:44)
[2017-06-08 08:00] VITALS: BP 165/90
[2017-06-08] MEDS: APIXABAN 5 MG TABLET PO SCH ×2 (08:31→20:11)
[2017-06-08] MEDS: HEPARIN SODIUM,PORCINE 5,000 UNITS/ML VIAL SQ SCH ×2 (08:31→20:11)
[2017-06-08] MEDS: PANTOPRAZOLE SODIUM 40 MG/VIAL IVP SCH (08:32)
[2017-06-08] MEDS: BIMATOPROST 0.01% 2.5 ML OPHTHALMIC SOLUTION OU SCH (08:32)
[2017-06-08] MEDS: LATANOPROST 0.005% 2.5 ML OPHTHALMIC SOLUTION OU SCH (08:32)
[2017-06-08] MEDS: DORZOLAMIDE/TIMOLOL 2-0.5% [22.3-6.8MG/ML] 10 ML OPHTHALMIC SOLUTION OU SCH (08:32)
[2017-06-08] MEDS: BRIMONIDINE TARTRATE 0.15% 5 ML OPHTHALMIC SOLUTION OU SCH ×2 (08:32→20:11)
[2017-06-08 09:46] LABS: ABG A-A DIFF O2 77.3 mmHg (10-20.0); ABG BASE EXCESS -3.1 mmol/L (-2.0-3.0); ABG CARBOXYHEMOGLOBIN 2.8 % (0.0-1.5); ABG HCO3 22.9 mmol/L (22.0-26.0); ABG METHEMOGLOBIN 0.2 % (0.0-1.5); ABG OXYGEN CONTENT 17.8 mL/dL (15.0-23.0); ABG OXYGEN SATURATION 97.5 % (95.0-98.0); ABG OXYHEMOGLOBIN 94.6 % (94.0-100.0); ABG PCO2 30 mmHg (35-45); ABG PH 7.463 (7.35-7.450); ABG TOTAL HEMOGLOBIN 13.3 G/dL (12.0-18.0); PO2, ARTERIAL BG 101.8 mmHg (79.0-87.0); SOURCE, BLOOD GAS ARTERIAL; TEMPERATURE, FAHRENHEIT, BG 98.6 FAHREN (96.0-98.6)
[2017-06-08 09:47] LABS: O2 DEVICE,BLOOD GAS VENTILATOR (ROOM AIR); SITE, BLOOD GAS LFT RADIAL
[2017-06-08 09:48] LABS: PEEP,BG 5 cm H2O; VT, ABG 500 ml
[2017-06-08 12:00] VITALS: BP 159/75
[2017-06-08 12:10] LABS: GLUCOSE,POINT OF CARE 232 MG/DL (70-110)
[2017-06-08 16:00] VITALS: BP 112/86
[2017-06-08 16:31] LABS: ABG A-A DIFF O2 80.7 mmHg (10-20.0); ABG BASE EXCESS 3.6 mmol/L (-2.0-3.0); ABG HCO3 26.6 mmol/L (22.0-26.0); ABG METHEMOGLOBIN 0.2 % (0.0-1.5); ABG OXYGEN SATURATION 93.3 % (95.0-98.0); ABG OXYHEMOGLOBIN 90.3 % (94.0-100.0); ABG PCO2 54 mmHg (35-45); ABG PH 7.348 (7.35-7.450); ABG TOTAL HEMOGLOBIN 13.4 G/dL (12.0-18.0); PO2, ARTERIAL BG 69.3 mmHg (79.0-87.0); SOURCE, BLOOD GAS ARTERIAL; TEMPERATURE, FAHRENHEIT, BG 98.6 FAHREN (96.0-98.6)
[2017-06-08 16:32] LABS: CPAP, BG 0 cm H2O; O2 DEVICE,BLOOD GAS VENTILATOR (ROOM AIR); PEEP,BG 0 cm H2O; SITE, BLOOD GAS LFT RADIAL; VENT MODE, BG SPONTANEOUS (ROOM AIR)
[2017-06-08 16:33] LABS: PRESSURE SUPPORT, BG 8 cm H2O; SPONTANEOUS VT, BG 280 ml
[2017-06-08 20:00] VITALS: BP 95/76
[2017-06-08] MEDS ORDERED: SODIUM CHLORIDE 0.9% 250 ML IV ONE (20:06)
[2017-06-08] MEDS: ACETAMINOPHEN 325 MG TABLET PO PRN (20:12)
[2017-06-09] VITALS (8 sets, daily range): BP systolic 126–179; BP diastolic 68–91
[2017-06-09] MEDS: PIPERACILLIN SODIUM/TAZOBACTAM 2.25 GM in DEXTROSE 5%-WATER 50 ML IV SCH ×3 (00:46→17:31)
[2017-06-09] MEDS: PROPOFOL 1000 MG/ISO-OSM 100 ML IV PRN ×3 (04:07→17:57)
[2017-06-09] MEDS: INSULIN REGULAR, HUMAN 100 UNITS/ML SQ PRN ×3 (05:06→17:33)
[2017-06-09 05:55] LABS: CALCIUM, TOTAL 8.5 mg/dL (8.8-10.5); CREATININE 2.72 mg/dL (0.60-1.30); POTASSIUM 4.1 mmol/L (3.5-5.1)
[2017-06-09 06:20] LABS: BASOPHILS % (AUTO) 0.6 % (0.0-2.0); HEMOGLOBIN 12.8 g/dL (12.0-16.0); LYMPHOCYTES # (AUTO) 1.6 K/uL (1.0-4.8); LYMPHOCYTES % (AUTO) 19.9 % (22.0-44.0); MEAN CORPUSCULAR HEMOGLOBIN 31.2 pg (26.0-34.0); MEAN CORPUSCULAR HGB CONC 32.1 G/dL (31.0-37.0); MEAN CORPUSCULAR VOLUME 97 fL (80-100); MONOCYTES # (AUTO) 0.7 K/uL (0.1-1.0); MONOCYTES % (AUTO) 8.5 % (2.0-9.0); NEUTROPHILS # (AUTO) 5.1 K/uL (1.8-7.7); PLATELET COUNT (AUTO) 167 K/uL (150-450); RED BLOOD CELL COUNT(AUTO) 4.11 MIL/uL (4.00-5.20); RED CELL DISTRIBUTION WIDTH 16.4 % (11.5-14.5)
[2017-06-09] MEDS: HEPARIN SODIUM,PORCINE 5,000 UNITS/ML VIAL SQ SCH ×2 (09:43→21:10)
[2017-06-09] MEDS: BRIMONIDINE TARTRATE 0.15% 5 ML OPHTHALMIC SOLUTION OU SCH ×2 (09:43→21:12)
[2017-06-09] MEDS: APIXABAN 5 MG TABLET PO SCH ×2 (09:43→21:10)
[2017-06-09] MEDS: PANTOPRAZOLE SODIUM 40 MG/VIAL IVP SCH (09:43)
[2017-06-09] MEDS: LATANOPROST 0.005% 2.5 ML OPHTHALMIC SOLUTION OU SCH (09:44)
[2017-06-09] MEDS: DORZOLAMIDE/TIMOLOL 2-0.5% [22.3-6.8MG/ML] 10 ML OPHTHALMIC SOLUTION OU SCH (09:44)
[2017-06-09 10:13] LABS: ABG A-A DIFF O2 71.7 mmHg (10-20.0); ABG BASE EXCESS -0.2 mmol/L (-2.0-3.0); ABG CARBOXYHEMOGLOBIN 2.6 % (0.0-1.5); ABG HCO3 25.1 mmol/L (22.0-26.0); ABG METHEMOGLOBIN 0.2 % (0.0-1.5); ABG OXYGEN CONTENT 17.7 mL/dL (15.0-23.0); ABG OXYGEN SATURATION 98.4 % (95.0-98.0); ABG OXYHEMOGLOBIN 95.6 % (94.0-100.0); ABG PCO2 30 mmHg (35-45); ABG PH 7.496 (7.35-7.450); ABG TOTAL HEMOGLOBIN 13.1 G/dL (12.0-18.0); PO2, ARTERIAL BG 106.4 mmHg (79.0-87.0); SITE, BLOOD GAS LFT RADIAL; SOURCE, BLOOD GAS ARTERIAL; TEMPERATURE, FAHRENHEIT, BG 98.7 FAHREN (96.0-98.6)
[2017-06-09 10:14] LABS: O2 DEVICE,BLOOD GAS VENTILATOR (ROOM AIR); PEEP,BG 5 cm H2O; VT, ABG 500 ml
[2017-06-09] MEDS: HydrALAZINE HCL 20 MG/ML VIAL IVP PRN (12:35)
[2017-06-09 12:38] LABS: GLUCOSE,POINT OF CARE 228 MG/DL (70-110)
[2017-06-09 17:59] LABS: GLUCOSE,POINT OF CARE 276 MG/DL (70-110)
[2017-06-09] MEDS: BIMATOPROST 0.01% 2.5 ML OPHTHALMIC SOLUTION OU SCH (21:11)
[2017-06-10] VITALS (8 sets, daily range): BP systolic 120–177; BP diastolic 56–109
[2017-06-10] MEDS: INSULIN REGULAR, HUMAN 100 UNITS/ML SQ PRN ×4 (00:30→17:37)
[2017-06-10] MEDS: PIPERACILLIN SODIUM/TAZOBACTAM 2.25 GM in DEXTROSE 5%-WATER 50 ML IV SCH ×3 (00:30→16:23)
[2017-06-10 00:43] LABS: GLUCOSE,POINT OF CARE 224 MG/DL (70-110)
[2017-06-10 02:23] LABS: GLUCOSE,POINT OF CARE 163 MG/DL (70-110)
[2017-06-10 02:23] LABS: GLUCOSE,POINT OF CARE 178 MG/DL (70-110)
[2017-06-10 02:23] LABS: GLUCOSE,POINT OF CARE 229 MG/DL (70-110)
[2017-06-10 02:23] LABS: GLUCOSE,POINT OF CARE 242 MG/DL (70-110)
[2017-06-10] MEDS: PROPOFOL 1000 MG/ISO-OSM 100 ML IV PRN ×3 (02:26→15:59)
[2017-06-10] MEDS ORDERED: SODIUM CHLORIDE 0.9% 100 ML ONE (05:31)
[2017-06-10] MEDS ORDERED: SODIUM CHLORIDE 0.9% 1,000 ML IV ONE ×2 (05:59→06:00)
[2017-06-10 06:16] LABS: GLUCOSE,POINT OF CARE 261 MG/DL (70-110)
[2017-06-10 06:39] LABS: CALCIUM, TOTAL 8.3 mg/dL (8.8-10.5); CREATININE 3.26 mg/dL (0.60-1.30); POTASSIUM 3.6 mmol/L (3.5-5.1)
[2017-06-10] MEDS: MORPHINE SULFATE 2 MG/ML SYRINGE IVP PRN (06:41)
[2017-06-10] MEDS: PANTOPRAZOLE SODIUM 40 MG/VIAL IVP SCH (09:15)
[2017-06-10] MEDS: HEPARIN SODIUM,PORCINE 5,000 UNITS/ML VIAL SQ SCH ×2 (09:15→20:31)
[2017-06-10] MEDS: APIXABAN 5 MG TABLET PO SCH ×2 (09:15→20:31)
[2017-06-10] MEDS: BRIMONIDINE TARTRATE 0.15% 5 ML OPHTHALMIC SOLUTION OU SCH ×2 (09:16→20:31)
[2017-06-10] MEDS: DORZOLAMIDE/TIMOLOL 2-0.5% [22.3-6.8MG/ML] 10 ML OPHTHALMIC SOLUTION OU SCH (09:16)
[2017-06-10] MEDS: LATANOPROST 0.005% 2.5 ML OPHTHALMIC SOLUTION OU SCH (09:17)
[2017-06-10 09:34] LABS: ABG A-A DIFF O2 59.6 mmHg (10-20.0); ABG BASE EXCESS 0.3 mmol/L (-2.0-3.0); ABG CARBOXYHEMOGLOBIN 2.9 % (0.0-1.5); ABG HCO3 25.4 mmol/L (22.0-26.0); ABG METHEMOGLOBIN 0.2 % (0.0-1.5); ABG OXYGEN CONTENT 17.3 mL/dL (15.0-23.0); ABG OXYGEN SATURATION 98.8 % (95.0-98.0); ABG OXYHEMOGLOBIN 95.7 % (94.0-100.0); ABG PCO2 31 mmHg (35-45); ABG PH 7.495 (7.35-7.450); ABG TOTAL HEMOGLOBIN 12.7 G/dL (12.0-18.0); PO2, ARTERIAL BG 117.5 mmHg (79.0-87.0); SOURCE, BLOOD GAS ARTERIAL; TEMPERATURE, FAHRENHEIT, BG 98.6 FAHREN (96.0-98.6)
[2017-06-10 09:37] LABS: O2 DEVICE,BLOOD GAS VENTILATOR (ROOM AIR); SITE, BLOOD GAS LFT RADIAL
[2017-06-10 09:38] LABS: PEEP,BG 5 cm H2O; VT, ABG 500 ml
[2017-06-10 13:40] LABS: INFLUENZA TYPE A NEGATIVE FOR TYPE A (NEGATIVE); INFLUENZA TYPE B NEGATIVE FOR TYPE B (NEGATIVE)
[2017-06-10 17:14] LABS: GLUCOSE,POINT OF CARE 190 MG/DL (70-110)
[2017-06-10 17:40] LABS: ABG A-A DIFF O2 74.1 mmHg (10-20.0); ABG BASE EXCESS 2.3 mmol/L (-2.0-3.0); ABG METHEMOGLOBIN 0.2 % (0.0-1.5); ABG OXYGEN CONTENT 17.7 mL/dL (15.0-23.0); ABG OXYGEN SATURATION 96.6 % (95.0-98.0); ABG OXYHEMOGLOBIN 93.5 % (94.0-100.0); ABG PCO2 45 mmHg (35-45); ABG PH 7.396 (7.35-7.450); ABG TOTAL HEMOGLOBIN 13.4 G/dL (12.0-18.0); PO2, ARTERIAL BG 86.7 mmHg (79.0-87.0); SITE, BLOOD GAS LFT RADIAL; SOURCE, BLOOD GAS ARTERIAL; TEMPERATURE, FAHRENHEIT, BG 98.6 FAHREN (96.0-98.6)
[2017-06-10 17:41] LABS: CPAP, BG 0 cm H2O; O2 DEVICE,BLOOD GAS VENTILATOR (ROOM AIR); PEEP,BG 0 cm H2O; PRESSURE SUPPORT, BG 8 cm H2O; SPONTANEOUS VT, BG 265 ml; VENT MODE, BG SPONTANEOUS (ROOM AIR)
[2017-06-10 19:23] LABS: GLUCOSE,POINT OF CARE 240 MG/DL (70-110)
[2017-06-10] MEDS ORDERED: SODIUM CHLORIDE 0.9% 250 ML IV ONE (20:22)
[2017-06-10] MEDS: BIMATOPROST 0.01% 2.5 ML OPHTHALMIC SOLUTION OU SCH (20:31)
[2017-06-10] MEDS: ACETAMINOPHEN 325 MG TABLET PO PRN (20:32)
[2017-06-11] VITALS (7 sets, daily range): BP systolic 101–148; BP diastolic 48–103
[2017-06-11 00:28] LABS: GLUCOSE,POINT OF CARE 268 MG/DL (70-110)
[2017-06-11] MEDS: PIPERACILLIN SODIUM/TAZOBACTAM 2.25 GM in DEXTROSE 5%-WATER 50 ML IV SCH ×3 (00:53→16:59)
[2017-06-11] MEDS: INSULIN REGULAR, HUMAN 100 UNITS/ML SQ PRN ×4 (00:55→23:37)
[2017-06-11] MEDS: PROPOFOL 1000 MG/ISO-OSM 100 ML IV PRN (05:20)
[2017-06-11 06:39] LABS: BASOPHILS # (AUTO) 0.03 K/uL (0.00-0.20); BASOPHILS % (AUTO) 0.4 % (0.0-2.0); EOSINOPHILS # (AUTO) 0.79 K/uL (0.00-0.70); EOSINOPHILS % (AUTO) 9.25 % (1.0-6.0); HEMATOCRIT 39.4 % (36-46); HEMOGLOBIN 12.7 g/dL (12.0-16.0); LYMPHOCYTES # (AUTO) 1.9 K/uL (1.0-4.8); MEAN CORPUSCULAR HEMOGLOBIN 31.6 pg (26.0-34.0); MEAN CORPUSCULAR HGB CONC 32.2 G/dL (31.0-37.0); MEAN CORPUSCULAR VOLUME 98 fL (80-100); MONOCYTES # (AUTO) 0.6 K/uL (0.1-1.0); MONOCYTES % (AUTO) 6.9 % (2.0-9.0); NEUTROPHILS # (AUTO) 5.3 K/uL (1.8-7.7); NEUTROPHILS % (AUTO) 61.5 % (40.0-70.0); PLATELET COUNT (AUTO) 184 K/uL (150-450); RED BLOOD CELL COUNT(AUTO) 4.01 MIL/uL (4.00-5.20)
[2017-06-11 07:04] LABS: CALCIUM, TOTAL 8.9 mg/dL (8.8-10.5); CREATININE 2.52 mg/dL (0.60-1.30); POTASSIUM 3.9 mmol/L (3.5-5.1)
[2017-06-11 07:18] LABS: GLUCOSE,POINT OF CARE 267 MG/DL (70-110)
[2017-06-11] MEDS: PANTOPRAZOLE SODIUM 40 MG/VIAL IVP SCH (08:28)
[2017-06-11] MEDS: APIXABAN 5 MG TABLET PO SCH ×2 (08:29→21:00)
[2017-06-11] MEDS: HEPARIN SODIUM,PORCINE 5,000 UNITS/ML VIAL SQ SCH ×2 (08:29→21:06)
[2017-06-11] MEDS: DORZOLAMIDE/TIMOLOL 2-0.5% [22.3-6.8MG/ML] 10 ML OPHTHALMIC SOLUTION OU SCH (08:30)
[2017-06-11] MEDS: BRIMONIDINE TARTRATE 0.15% 5 ML OPHTHALMIC SOLUTION OU SCH ×2 (08:30→21:07)
[2017-06-11] MEDS: LATANOPROST 0.005% 2.5 ML OPHTHALMIC SOLUTION OU SCH (08:30)
[2017-06-11 12:02] LABS: ABG A-A DIFF O2 64.8 mmHg (10-20.0); ABG BASE EXCESS 1.7 mmol/L (-2.0-3.0); ABG CARBOXYHEMOGLOBIN 2.9 % (0.0-1.5); ABG HCO3 25.2 mmol/L (22.0-26.0); ABG METHEMOGLOBIN 0.2 % (0.0-1.5); ABG OXYGEN CONTENT 17.1 mL/dL (15.0-23.0); ABG OXYGEN SATURATION 96.1 % (95.0-98.0); ABG OXYHEMOGLOBIN 93.1 % (94.0-100.0); ABG PCO2 53 mmHg (35-45); ABG PH 7.335 (7.35-7.450); PO2, ARTERIAL BG 86.9 mmHg (79.0-87.0); SOURCE, BLOOD GAS ARTERIAL
[2017-06-11 12:03] LABS: O2 DEVICE,BLOOD GAS VENTILATOR (ROOM AIR); PRESSURE SUPPORT, BG 8 cm H2O; SITE, BLOOD GAS LFT BRACHIAL; SPONTANEOUS VT, BG 420 ml; VENT MODE, BG SPONTANEOUS (ROOM AIR)
[2017-06-11 15:28] LABS: GLUCOSE,POINT OF CARE 199 MG/DL (70-110)
[2017-06-11] MEDS: MORPHINE SULFATE 2 MG/ML SYRINGE IVP PRN ×2 (16:59→23:42)
[2017-06-11] MEDS ORDERED: VANCOMYCIN HCL 1 GM/D5% WATER 200 ML IV ONE (18:00)
[2017-06-11 19:12] LABS: GLUCOSE,POINT OF CARE 165 MG/DL (70-110)
[2017-06-11] MEDS: BIMATOPROST 0.01% 2.5 ML OPHTHALMIC SOLUTION OU SCH (21:07)
[2017-06-11 23:47] LABS: GLUCOSE,POINT OF CARE 191 MG/DL (70-110)
[2017-06-12] VITALS (9 sets, daily range): BP systolic 114–153; BP diastolic 59–97
[2017-06-12] MEDS: PIPERACILLIN SODIUM/TAZOBACTAM 2.25 GM in DEXTROSE 5%-WATER 50 ML IV SCH ×3 (01:37→16:36)
[2017-06-12 05:26] LABS: BASOPHILS % (AUTO) 0.7 % (0.0-2.0); EOSINOPHILS % (AUTO) 13.1 % (1.0-6.0); HEMATOCRIT 40.7 % (36-46); HEMOGLOBIN 13.2 g/dL (12.0-16.0); LYMPHOCYTES # (AUTO) 1.7 K/uL (1.0-4.8); LYMPHOCYTES % (AUTO) 19.8 % (22.0-44.0); MEAN CORPUSCULAR HEMOGLOBIN 31.6 pg (26.0-34.0); MEAN CORPUSCULAR HGB CONC 32.5 G/dL (31.0-37.0); MEAN CORPUSCULAR VOLUME 97 fL (80-100); MONOCYTES # (AUTO) 0.8 K/uL (0.1-1.0); MONOCYTES % (AUTO) 9.2 % (2.0-9.0); NEUTROPHILS % (AUTO) 57.2 % (40.0-70.0); PLATELET COUNT (AUTO) 223 K/uL (150-450); RED BLOOD CELL COUNT(AUTO) 4.19 MIL/uL (4.00-5.20)
[2017-06-12] MEDS: INSULIN REGULAR, HUMAN 100 UNITS/ML SQ PRN ×2 (05:59→16:55)
[2017-06-12 06:06] LABS: CALCIUM, TOTAL 8.9 mg/dL (8.8-10.5); CREATININE 3.51 mg/dL (0.60-1.30); POTASSIUM 3.9 mmol/L (3.5-5.1)
[2017-06-12] MEDS: APIXABAN 5 MG TABLET PO SCH ×2 (08:13→21:51)
[2017-06-12] MEDS: PANTOPRAZOLE SODIUM 40 MG/VIAL IVP SCH (08:13)
[2017-06-12] MEDS: HEPARIN SODIUM,PORCINE 5,000 UNITS/ML VIAL SQ SCH (08:14)
[2017-06-12] MEDS: DORZOLAMIDE/TIMOLOL 2-0.5% [22.3-6.8MG/ML] 10 ML OPHTHALMIC SOLUTION OU SCH (08:15)
[2017-06-12] MEDS: LATANOPROST 0.005% 2.5 ML OPHTHALMIC SOLUTION OU SCH (08:16)
[2017-06-12] MEDS: BRIMONIDINE TARTRATE 0.15% 5 ML OPHTHALMIC SOLUTION OU SCH ×2 (08:16→21:52)
[2017-06-12] MEDS: MORPHINE SULFATE 2 MG/ML SYRINGE IVP PRN ×2 (08:16→16:36)
[2017-06-12 08:37] LABS: GLUCOSE,POINT OF CARE 150 MG/DL (70-110)
[2017-06-12 12:37] LABS: GLUCOSE,POINT OF CARE 176 MG/DL (70-110)
[2017-06-12] MEDS ORDERED: SODIUM CHLORIDE 0.9% 250 ML IV ONE (14:12)
[2017-06-12] MEDS: BIMATOPROST 0.01% 2.5 ML OPHTHALMIC SOLUTION OU SCH (21:52)
[2017-06-13] VITALS (7 sets, daily range): BP systolic 119–156; BP diastolic 68–97
[2017-06-13] MEDS ORDERED: SODIUM CHLORIDE 0.9% 250 ML IV ONE (01:28)
[2017-06-13] MEDS: PIPERACILLIN SODIUM/TAZOBACTAM 2.25 GM in DEXTROSE 5%-WATER 50 ML IV SCH ×3 (01:37→17:01)
[2017-06-13] MEDS: INSULIN REGULAR, HUMAN 100 UNITS/ML SQ PRN ×4 (06:26→21:45)
[2017-06-13] MEDS: APIXABAN 5 MG TABLET PO SCH ×2 (08:55→21:31)
[2017-06-13] MEDS: PANTOPRAZOLE SODIUM 40 MG/VIAL IVP SCH (08:55)
[2017-06-13] MEDS: BRIMONIDINE TARTRATE 0.15% 5 ML OPHTHALMIC SOLUTION OU SCH ×2 (08:56→21:46)
[2017-06-13] MEDS: DORZOLAMIDE/TIMOLOL 2-0.5% [22.3-6.8MG/ML] 10 ML OPHTHALMIC SOLUTION OU SCH (08:56)
[2017-06-13] MEDS: LATANOPROST 0.005% 2.5 ML OPHTHALMIC SOLUTION OU SCH (08:56)
[2017-06-13 08:58] LABS: GLUCOSE,POINT OF CARE 234 MG/DL (70-110)
[2017-06-13] MEDS: VITAMIN B COMP/VIT C/FOLIC ACID CAPSULE PO SCH (10:55)
[2017-06-13] MEDS: DILTIAZEM HCL 30 MG TABLET PO SCH ×2 (10:55→21:31)
[2017-06-13 20:57] LABS: GLUCOMETER DEV NAME(LOC) 5S 2N; GLUCOSE,POINT OF CARE 166 MG/DL (70-110)
[2017-06-13 20:57] LABS: GLUCOMETER DEV NAME(LOC) 5S 2N; GLUCOSE,POINT OF CARE 145 MG/DL (70-110)
[2017-06-13 20:57] LABS: GLUCOMETER DEV NAME(LOC) 5S 2N; GLUCOSE,POINT OF CARE 162 MG/DL (70-110)
[2017-06-13] MEDS: BIMATOPROST 0.01% 2.5 ML OPHTHALMIC SOLUTION OU SCH (21:42)
[2017-06-14 00:18] LABS: GLUCOMETER DEV NAME(LOC) 5S 1L; GLUCOSE,POINT OF CARE 179 MG/DL (70-110)
[2017-06-14] MEDS: PIPERACILLIN SODIUM/TAZOBACTAM 2.25 GM in DEXTROSE 5%-WATER 50 ML IV SCH ×3 (00:52→17:20)
[2017-06-14 04:38] VITALS: BP 152/83
[2017-06-14] MEDS: INSULIN REGULAR, HUMAN 100 UNITS/ML SQ PRN ×4 (06:28→20:29)
[2017-06-14 07:24] VITALS: BP 150/93
[2017-06-14 07:34] LABS: BASOPHILS % (AUTO) 0.4 % (0.0-2.0); EOSINOPHILS % (AUTO) 9.2 % (1.0-6.0); HEMATOCRIT 41.1 % (36-46); HEMOGLOBIN 13.3 g/dL (12.0-16.0); LYMPHOCYTES # (AUTO) 1.6 K/uL (1.0-4.8); LYMPHOCYTES % (AUTO) 16.2 % (22.0-44.0); MEAN CORPUSCULAR HEMOGLOBIN 31.6 pg (26.0-34.0); MEAN CORPUSCULAR HGB CONC 32.4 G/dL (31.0-37.0); MEAN CORPUSCULAR VOLUME 98 fL (80-100); MONOCYTES % (AUTO) 10.1 % (2.0-9.0); NEUTROPHILS # (AUTO) 6.3 K/uL (1.8-7.7); NEUTROPHILS % (AUTO) 64.1 % (40.0-70.0); PLATELET COUNT (AUTO) 209 K/uL (150-450); RED BLOOD CELL COUNT(AUTO) 4.21 MIL/uL (4.00-5.20)
[2017-06-14 07:57] LABS: GLUCOMETER DEV NAME(LOC) 5S 2N; GLUCOSE,POINT OF CARE 173 MG/DL (70-110)
[2017-06-14 07:57] LABS: GLUCOMETER DEV NAME(LOC) 5S 2N; GLUCOSE,POINT OF CARE 175 MG/DL (70-110)
[2017-06-14 07:58] LABS: GLUCOMETER DEV NAME(LOC) 5S 2N; GLUCOSE,POINT OF CARE 149 MG/DL (70-110)
[2017-06-14] MEDS: APIXABAN 5 MG TABLET PO SCH ×2 (08:15→20:27)
[2017-06-14] MEDS: VITAMIN B COMP/VIT C/FOLIC ACID CAPSULE PO SCH (08:15)
[2017-06-14] MEDS: DILTIAZEM HCL 30 MG TABLET PO SCH ×2 (08:15→20:27)
[2017-06-14] MEDS: LATANOPROST 0.005% 2.5 ML OPHTHALMIC SOLUTION OU SCH (08:15)
[2017-06-14] MEDS: DORZOLAMIDE/TIMOLOL 2-0.5% [22.3-6.8MG/ML] 10 ML OPHTHALMIC SOLUTION OU SCH (08:16)
[2017-06-14] MEDS: PANTOPRAZOLE SODIUM 40 MG/VIAL IVP SCH (08:16)
[2017-06-14 08:25] LABS: ALBUMIN 2.9 g/dL (3.4-5.0); BILIRUBIN,TOTAL 0.8 mg/dL (0.1-1.0); CALCIUM, TOTAL 8.4 mg/dL (8.8-10.5); CREATININE 4.39 mg/dL (0.60-1.30); MAGNESIUM 1.9 mg/dL (1.80-2.40); POTASSIUM 3.8 mmol/L (3.5-5.1)
[2017-06-14] MEDS: BRIMONIDINE TARTRATE 0.15% 5 ML OPHTHALMIC SOLUTION OU SCH ×2 (09:36→20:28)
[2017-06-14 11:37] VITALS: BP 107/74
[2017-06-14] MEDS: MORPHINE SULFATE 2 MG/ML SYRINGE IVP PRN (13:48)
[2017-06-14 15:57] VITALS: BP 151/67
[2017-06-14 19:32] VITALS: BP 154/93
[2017-06-14 20:23] LABS: GLUCOMETER DEV NAME(LOC) 5N 1M; GLUCOSE,POINT OF CARE 171 MG/DL (70-110)
[2017-06-14] MEDS: BIMATOPROST 0.01% 2.5 ML OPHTHALMIC SOLUTION OU SCH (20:28)
[2017-06-15] MEDS: PIPERACILLIN SODIUM/TAZOBACTAM 2.25 GM in DEXTROSE 5%-WATER 50 ML IV SCH ×2 (02:27→08:05)
[2017-06-15 04:11] VITALS: BP 137/74
[2017-06-15] MEDS: INSULIN REGULAR, HUMAN 100 UNITS/ML SQ PRN ×3 (06:04→20:46)
[2017-06-15 06:29] LABS: BASOPHILS % (AUTO) 0.3 % (0.0-2.0); EOSINOPHILS % (AUTO) 8.6 % (1.0-6.0); HEMATOCRIT 41.8 % (36-46); HEMOGLOBIN 13.5 g/dL (12.0-16.0); LYMPHOCYTES # (AUTO) 1.7 K/uL (1.0-4.8); LYMPHOCYTES % (AUTO) 15.4 % (22.0-44.0); MEAN CORPUSCULAR HEMOGLOBIN 31.8 pg (26.0-34.0); MEAN CORPUSCULAR HGB CONC 32.3 G/dL (31.0-37.0); MEAN CORPUSCULAR VOLUME 98 fL (80-100); MONOCYTES % (AUTO) 8.9 % (2.0-9.0); NEUTROPHILS # (AUTO) 7.2 K/uL (1.8-7.7); NEUTROPHILS % (AUTO) 66.8 % (40.0-70.0); PLATELET COUNT (AUTO) 205 K/uL (150-450); RED BLOOD CELL COUNT(AUTO) 4.24 MIL/uL (4.00-5.20); RED CELL DISTRIBUTION WIDTH 15.4 % (11.5-14.5)
[2017-06-15 07:02] LABS: CALCIUM, TOTAL 8.5 mg/dL (8.8-10.5); CREATININE 5.19 mg/dL (0.60-1.30); MAGNESIUM 1.9 mg/dL (1.80-2.40); POTASSIUM 3.7 mmol/L (3.5-5.1)
[2017-06-15 07:20] VITALS: BP 128/50
[2017-06-15] MEDS: PANTOPRAZOLE SODIUM 40 MG/VIAL IVP SCH (08:01)
[2017-06-15] MEDS: BRIMONIDINE TARTRATE 0.15% 5 ML OPHTHALMIC SOLUTION OU SCH ×2 (08:06→22:26)
[2017-06-15] MEDS: DORZOLAMIDE/TIMOLOL 2-0.5% [22.3-6.8MG/ML] 10 ML OPHTHALMIC SOLUTION OU SCH (08:06)
[2017-06-15] MEDS: APIXABAN 5 MG TABLET PO SCH ×2 (08:07→20:32)
[2017-06-15] MEDS: VITAMIN B COMP/VIT C/FOLIC ACID CAPSULE PO SCH (08:07)
[2017-06-15] MEDS: LATANOPROST 0.005% 2.5 ML OPHTHALMIC SOLUTION OU SCH (08:07)
[2017-06-15] MEDS: DILTIAZEM HCL 30 MG TABLET PO SCH ×2 (09:00→22:37)
[2017-06-15 10:45] VITALS: BP 142/51
[2017-06-15] MEDS ORDERED: MANNITOL 25%-12.5 GM/50 ML VIAL IVP PRN (11:30)
[2017-06-15] MEDS ORDERED: TraMADol HCL 50 MG TABLET PO PRN (15:45)
[2017-06-15 19:40] VITALS: BP 92/44
[2017-06-15] MEDS: BIMATOPROST 0.01% 2.5 ML OPHTHALMIC SOLUTION OU SCH (20:32)
[2017-06-15 20:35] VITALS: BP 120/86
[2017-06-15] MEDS: DIAZEPAM 2 MG TABLET PO SCH (22:26)
[2017-06-16 00:03] VITALS: BP 121/69
[2017-06-16 00:58] LABS: GLUCOMETER DEV NAME(LOC) 5S 2N; GLUCOSE,POINT OF CARE 178 MG/DL (70-110)
[2017-06-16 00:58] LABS: GLUCOMETER DEV NAME(LOC) 5S 2N; GLUCOSE,POINT OF CARE 167 MG/DL (70-110)
[2017-06-16 00:58] LABS: GLUCOMETER DEV NAME(LOC) 5S 2N; GLUCOSE,POINT OF CARE 141 MG/DL (70-110)
[2017-06-16 00:58] LABS: GLUCOMETER DEV NAME(LOC) 5S 2N; GLUCOSE,POINT OF CARE 134 MG/DL (70-110)
[2017-06-16 00:58] LABS: GLUCOMETER DEV NAME(LOC) 5S 2N; GLUCOSE,POINT OF CARE 174 MG/DL (70-110)
[2017-06-16 04:29] VITALS: BP 133/97
[2017-06-16] MEDS: INSULIN REGULAR, HUMAN 100 UNITS/ML SQ PRN ×2 (06:12→12:09)
[2017-06-16 07:27] VITALS: BP 101/65
[2017-06-16] MEDS ORDERED: VANCOMYCIN HCL 1 GM/D5% WATER 200 ML IV ONE (08:00)
[2017-06-16] MEDS: DIAZEPAM 2 MG TABLET PO SCH (09:15)
[2017-06-16] MEDS: DORZOLAMIDE/TIMOLOL 2-0.5% [22.3-6.8MG/ML] 10 ML OPHTHALMIC SOLUTION OU SCH (09:15)
[2017-06-16] MEDS: DILTIAZEM HCL 30 MG TABLET PO SCH (09:15)
[2017-06-16] MEDS: BRIMONIDINE TARTRATE 0.15% 5 ML OPHTHALMIC SOLUTION OU SCH (09:15)
[2017-06-16] MEDS: APIXABAN 5 MG TABLET PO SCH (09:15)
[2017-06-16] MEDS: PANTOPRAZOLE SODIUM 40 MG/VIAL IVP SCH (09:15)
[2017-06-16] MEDS: LATANOPROST 0.005% 2.5 ML OPHTHALMIC SOLUTION OU SCH (09:15)
[2017-06-16] MEDS: VITAMIN B COMP/VIT C/FOLIC ACID CAPSULE PO SCH (09:15)
[2017-06-16] MEDS ORDERED: DILT30 PO (15:43)
[2017-06-16] MEDS ORDERED: APIX5TAB PO (15:44)
[2017-06-16] MEDS ORDERED: HYDR10TA31 PO (15:46)
[2017-06-16] MEDS ORDERED: MOM30 PO (15:48)
[2017-06-16 15:49] VITALS: BP 160/99
[2017-06-16] MEDS ORDERED: TRAM50TA4 PO (15:49)
[2017-06-16] MEDS ORDERED: DEXTROSE 50%-WATER 25 GM/50 ML SYRINGE IVP PRN (16:00)
[2017-06-16] MEDS ORDERED: INSULIN ASPART 100 UNITS/ML SQ PRN (16:00)
[2017-06-17 04:43] LABS: GLUCOMETER DEV NAME(LOC) 5N 1M; GLUCOSE,POINT OF CARE 162 MG/DL (70-110)
[2017-06-17 04:43] LABS: GLUCOMETER DEV NAME(LOC) 5N 1M; GLUCOSE,POINT OF CARE 176 MG/DL (70-110)
[2017-06-17 04:43] LABS: GLUCOMETER DEV NAME(LOC) 5N 1M; GLUCOSE,POINT OF CARE 218 MG/DL (70-110)
[2017-06-17 05:54] LABS: GLUCOMETER DEV NAME(LOC) 5S 1L; GLUCOSE,POINT OF CARE 200 MG/DL (70-110)
== END 2017-06-16 20:25 | DRG 870 ==
LOC: EMS 10:33 → ICU 18:17 → 5N 06-12 18:00 → 5S 06-15 18:05
PROVIDERS: ADMIT Internal Medicine Geriatric Medicine; ATTEND Internal Medicine Geriatric Medicine
PROC: 5A1955Z Respiratory Ventilation, Greater than 96 Consecutive Hours (ICD-10-PCS; principal; 2017-06-02)
PROC: 0BH17EZ Insertion of Endotracheal Airway into Trachea, Via Natural or Artificial Opening (ICD-10-PCS; 2017-06-02)
PROC: 5A1D70Z Performance of Urinary Filtration, Intermittent, Less than 6 Hours Per Day (ICD-10-PCS; 2017-06-02)
PROC: 5A1D70Z Performance of Urinary Filtration, Intermittent, Less than 6 Hours Per Day (ICD-10-PCS; 2017-06-03)
PROC: 5A1D70Z Performance of Urinary Filtration, Intermittent, Less than 6 Hours Per Day (ICD-10-PCS; 2017-06-05)
PROC: 5A1D70Z Performance of Urinary Filtration, Intermittent, Less than 6 Hours Per Day (ICD-10-PCS; 2017-06-08)
PROC: 5A1D70Z Performance of Urinary Filtration, Intermittent, Less than 6 Hours Per Day (ICD-10-PCS; 2017-06-10)
PROC: 5A1D70Z Performance of Urinary Filtration, Intermittent, Less than 6 Hours Per Day (ICD-10-PCS; 2017-06-12)
PROC: 5A1D70Z Performance of Urinary Filtration, Intermittent, Less than 6 Hours Per Day (ICD-10-PCS; 2017-06-15)
DX: A41.9 Sepsis, unspecified organism (principal); J96.21 Acute and chronic respiratory failure with hypoxia; I13.2 Hypertensive heart and chronic kidney disease with heart failure and with stage 5 chronic kidney disease, or end stage renal disease; J18.9 Pneumonia, unspecified organism; G93.41 Metabolic encephalopathy; J44.0 Chronic obstructive pulmonary disease with (acute) lower respiratory infection; E11.21 Type 2 diabetes mellitus with diabetic nephropathy; D69.6 Thrombocytopenia, unspecified; E11.40 Type 2 diabetes mellitus with diabetic neuropathy, unspecified; N18.6 End stage renal disease; I50.33 Acute on chronic diastolic (congestive) heart failure; J96.22 Acute and chronic respiratory failure with hypercapnia; S32.029A Unspecified fracture of second lumbar vertebra, initial encounter for closed fracture; E66.2 Morbid (severe) obesity with alveolar hypoventilation; I69.951 Hemiplegia and hemiparesis following unspecified cerebrovascular disease affecting right dominant side; I45.2 Bifascicular block; E87.1 Hypo-osmolality and hyponatremia; E11.22 Type 2 diabetes mellitus with diabetic chronic kidney disease; E87.5 Hyperkalemia; E11.319 Type 2 diabetes mellitus with unspecified diabetic retinopathy without macular edema; E78.00 Pure hypercholesterolemia, unspecified; E83.39 Other disorders of phosphorus metabolism; E87.6 Hypokalemia; F03.90 Unspecified dementia, unspecified severity, without behavioral disturbance, psychotic disturbance, mood disturbance, and anxiety; I25.10 Atherosclerotic heart disease of native coronary artery without angina pectoris; I48.91 Unspecified atrial fibrillation; F41.9 Anxiety disorder, unspecified; X58.XXXA Exposure to other specified factors, initial encounter; H40.9 Unspecified glaucoma; Z79.4 Long term (current) use of insulin; Z79.82 Long term (current) use of aspirin; Z79.899 Other long term (current) drug therapy; Z80.0 Family history of malignant neoplasm of digestive organs; Z83.3 Family history of diabetes mellitus; Z90.710 Acquired absence of both cervix and uterus; Z99.2 Dependence on renal dialysis; Z22.322 Carrier or suspected carrier of Methicillin resistant Staphylococcus aureus; Z88.5 Allergy status to narcotic agent; Y93.89 Activity, other specified; Y92.89 Other specified places as the place of occurrence of the external cause
CPT/HCPCS: 31500; 51702; 71260; 82306; 82607; 82746; 82805; 82962; 83036; 83605; 83735; 84100; 84132; 84145; 84439; 84443; 87040; 87070; 87081; 87147; 87205; 87324; 87340; 87449; 87804; 90935; 92610; 93005; 93306; 94002; 94003; 94644; 94660; 96365; 96367; 96375; 99291; C9113; J0330; J0360; J1580; J1644; J2270; J2370; J2543; J2704; J3370; J3480; J3490; J7030; J7050; J7060

== ENCOUNTER 2017-10-12 13:35 | Inpatient (IN) | payer MEDICARE, MEDICAID ==
[~2017-10-12] VITALS: Ht 154.9 cm; Wt 77.5 kg
[~2017-10-12 13:35] MED LIST changes: -AMLO2.5T29 PO; +APIX5TAB PO; -ASPI-556 PO; -AUD NEB; -CALC-866 PO; -CHOL3000 PO; -CLON0.1T PO; +DILT30 PO; -DSS100 PO; -EPOE10I SQ; -FERR-89 PO; -FOLI1CAP2 PO; -GABA-531 PO; -HEP5KI SQ; -HYDR-3965 PO; +HYDR10TA31 PO; +INSNOV SQ; -INSU100C6 SQ; -IPRNEB IH; -METO5TAB95 PO; +MOM30 PO; +TRAM50TA4 PO; -[UNRECOGNIZED DRUG - CODE] SQ
[2017-10-12] MEDS ORDERED: ONDANSETRON HCL 4 MG/2 ML VIAL IVP ONE (15:15)
[2017-10-12] MEDS ORDERED: MORPHINE SULFATE 4 MG/ML SYRINGE IVP ONE (15:15)
[2017-10-12 16:27] LABS: BASOPHILS % (AUTO) 1.4 % (0.0-2.0); EOSINOPHILS % (AUTO) 6.5 % (1.0-6.0); HEMATOCRIT 38.4 % (36-46); HEMOGLOBIN 12.6 g/dL (12.0-16.0); LYMPHOCYTES # (AUTO) 1.8 K/uL (1.0-4.8); MEAN CORPUSCULAR HEMOGLOBIN 30.9 pg (26.0-34.0); MEAN CORPUSCULAR HGB CONC 32.9 G/dL (31.0-37.0); MEAN CORPUSCULAR VOLUME 94 fL (80-100); MONOCYTES # (AUTO) 0.7 K/uL (0.1-1.0); NEUTROPHILS # (AUTO) 4.1 K/uL (1.8-7.7); NEUTROPHILS % (AUTO) 57.1 % (40.0-70.0); PLATELET COUNT (AUTO) 237 K/uL (150-450); RED BLOOD CELL COUNT(AUTO) 4.08 MIL/uL (4.00-5.20); RED CELL DISTRIBUTION WIDTH 14.3 % (11.5-14.5)
[2017-10-12 16:27] LABS: APPEARANCE,URINE CLOUDY (CLEAR); BILIRUBIN,URINE NEGATIVE (NEGATIVE); GLUCOSE, URINE (UA) NEGATIVE (NEGATIVE); KETONES,URINE NEGATIVE (NEGATIVE); LEUKOCYTE ESTERASE ,URINE SMALL (NEGATIVE); NITRATE,URINE NEGATIVE (NEGATIVE); OCCULT BLOOD,URINE SMALL (NEGATIVE); PROTEIN,URINE SEE CONFIRM (NEGATIVE); UROBILINOGEN,URINE 0.2 mg/dL (<=1.0)
[2017-10-12 16:33] LABS: SULFOSALICYLIC ACID,URINE 4+ (Negative)
[2017-10-12 16:34] LABS: RBC,URINE 0-2 /HPF (0-2); WBC,URINE 26-50 /HPF (0-5)
[2017-10-12 16:35] LABS: BACTERIA,URINE Many /HPF (None Seen); SQUAMOUS EPITHELIAL CELL,UR Few /LPF (None Seen)
[2017-10-12 16:36] LABS: INR 1.1 (0.9-1.1); PROTHROMBIN TIME 11.6 SEC (9.4-11.6)
[2017-10-12 16:36] LABS: RENAL EPITHELIAL CELLS,URINE Rare /LPF (None Seen)
[2017-10-12 16:45] LABS: CALCIUM, TOTAL 8.9 mg/dL (8.8-10.5); CREATININE 4.48 mg/dL (0.60-1.30); POTASSIUM 4.1 mmol/L (3.5-5.1)
[2017-10-12 16:58] LABS: BILIRUBIN,TOTAL 0.6 mg/dL (0.1-1.0); TOTAL PROTEIN, SERUM 7.6 g/dL (6.4-8.2)
[2017-10-12] MEDS ORDERED: CefTRIAXone SODIUM 1 GM in DEXTROSE 5%-WATER 10 ML IV ONE (17:15)
[2017-10-12 18:03] LABS: GLUCOSE,POINT OF CARE 91 MG/DL (70-110)
[2017-10-12] MEDS ORDERED: ONDANSETRON HCL 4 MG/2 ML VIAL IVP PRN (22:00)
[2017-10-12] MEDS ORDERED: ACETAMINOPHEN 325 MG TABLET PO PRN (22:00)
[2017-10-12] MEDS ORDERED: 0.9% SODIUM CHLORIDE 10 ML SYRINGE IVP PRN (22:00)
[2017-10-12] MEDS ORDERED: ZOLPIDEM TARTRATE 5 MG TABLET PO PRN (22:30)
[2017-10-12] MEDS ORDERED: TraMADol HCL 50 MG TABLET PO PRN (22:30)
[2017-10-12] MEDS ORDERED: BISACODYL 5 MG EC TABLET PO PRN (22:30)
[2017-10-12] MEDS ORDERED: ALBUTEROL SULFATE 2.5 MG/0.5 ML NEB SOLUTION NEB PRN (22:30)
[2017-10-12] MEDS ORDERED: IPRATROPIUM BROMIDE 0.5 MG/2.5 ML NEB SOLUTION NEB PRN (22:30)
[2017-10-12] MEDS ORDERED: MAGNESIUM HYDROXIDE SUSPENSION 30 ML UDCUP PO PRN (22:30)
[2017-10-12] MEDS ORDERED: DEXTROSE 50%-WATER 25 GM/50 ML SYRINGE IVP PRN (22:45)
[2017-10-12] MEDS ORDERED: BETAMETHASONE DIP 0.05% 15 GM OINTMENT TP PRN (22:45)
[2017-10-12 23:10] VITALS: BP 170/83
[2017-10-12] MEDS: INSULIN LISPRO 100 UNITS/ML SQ PRN (23:16)
[2017-10-12 23:45] VITALS: BP 155/97
[2017-10-13] MEDS ORDERED: MORPHINE SULFATE 4 MG/ML SYRINGE IVP PRN (01:15)
[2017-10-13] MEDS ORDERED: CefoTEtan DISOD 1 GM/DEXTROSE 50 ML IV SCH (05:00)
[2017-10-13] MEDS ORDERED: SODIUM CHLORIDE 0.9% 250 ML IV ONE (05:08)
[2017-10-13 05:43] VITALS: BP 155/74
[2017-10-13 06:29] LABS: BASOPHILS % (AUTO) 1.4 % (0.0-2.0); EOSINOPHILS % (AUTO) 7.4 % (1.0-6.0); HEMATOCRIT 35.2 % (36-46); LYMPHOCYTES # (AUTO) 1.4 K/uL (1.0-4.8); LYMPHOCYTES % (AUTO) 22.4 % (22.0-44.0); MEAN CORPUSCULAR HEMOGLOBIN 32.1 pg (26.0-34.0); MEAN CORPUSCULAR HGB CONC 34.1 G/dL (31.0-37.0); MEAN CORPUSCULAR VOLUME 94 fL (80-100); MONOCYTES # (AUTO) 0.7 K/uL (0.1-1.0); MONOCYTES % (AUTO) 11.2 % (2.0-9.0); NEUTROPHILS # (AUTO) 3.6 K/uL (1.8-7.7); NEUTROPHILS % (AUTO) 57.6 % (40.0-70.0); PLATELET COUNT (AUTO) 244 K/uL (150-450); RED BLOOD CELL COUNT(AUTO) 3.75 MIL/uL (4.00-5.20); RED CELL DISTRIBUTION WIDTH 14.6 % (11.5-14.5)
[2017-10-13 06:35] LABS: HEMOGLOBIN A1C 5.4 % (4.5-6.2)
[2017-10-13 07:02] LABS: ANION GAP 10 mmol/L (8-16); CALCIUM, TOTAL 8.8 mg/dL (8.8-10.5); CARBON DIOXIDE 26 mmol/L (22-29); CHLORIDE 101 mmol/L (98-107); CHOL/HDL RATIO 5.7 (3.9-5.7); CHOLESTEROL 187 mg/dL (131-200); CREATINE KINASE, TOTAL 19 U/L (26-192); CREATININE 4.72 mg/dL (0.60-1.30); FREE T4 (FREE THYROXINE) 1.18 ng/dL (0.76-1.46); GLOMERULAR FILTR. RATE CALC 9 mL/min (>60); GLUCOSE,RANDOM 120 mg/dL (70-110); HDL CHOLESTEROL 33 mg/dL (40-60); LDL CHOL (CALC.) 117 mg/dL (0-130); POTASSIUM 4.3 mmol/L (3.5-5.1); SODIUM SERUM 137 mmol/L (136-145); THYROID STIMULATING HORMONE 2.56 uIU/mL (0.36-3.74); TRIGLYCERIDES 183 mg/dL (15-150); UREA NITROGEN, BLOOD 49 mg/dL (7-18)
[2017-10-13] MEDS: VITAMIN B COMP/VIT C/FOLIC ACID CAPSULE PO SCH (09:00)
[2017-10-13] MEDS: LATANOPROST 0.005% 2.5 ML OPHTHALMIC SOLUTION OU SCH (09:00)
[2017-10-13] MEDS: DORZOLAMIDE/TIMOLOL 2-0.5% [22.3-6.8MG/ML] 10 ML OPHTHALMIC SOLUTION OU SCH (09:00)
[2017-10-13] MEDS: PANTOPRAZOLE SODIUM 40 MG DR TABLET PO SCH (09:00)
[2017-10-13] MEDS: BRIMONIDINE TARTRATE 0.15% 5 ML OPHTHALMIC SOLUTION OU SCH ×2 (09:00→20:24)
[2017-10-13] MEDS: DIAZEPAM 2 MG TABLET PO SCH ×2 (09:23→20:25)
[2017-10-13] MEDS: DILTIAZEM HCL 30 MG TABLET PO SCH ×2 (09:23→20:25)
[2017-10-13] MEDS: APIXABAN 5 MG TABLET PO SCH ×2 (09:23→20:25)
[2017-10-13 11:07] VITALS: BP 142/67
[2017-10-13] MEDS: INSULIN LISPRO 100 UNITS/ML SQ PRN ×3 (11:46→21:16)
[2017-10-13] MEDS ORDERED: *CLINICAL-RX DOSING [ENTER DRUG IN COMMENTS] CLINICAL ONE (12:00)
[2017-10-13 13:20] LABS: FOLATE SERUM 8.1 ng/mL (5.4-)
[2017-10-13 15:23] VITALS: BP 142/67
[2017-10-13 16:13] LABS: GLUCOMETER DEV NAME(LOC) 5N 1P; GLUCOSE,POINT OF CARE 125 MG/DL (70-110)
[2017-10-13 16:13] LABS: GLUCOMETER DEV NAME(LOC) 5N 1P; GLUCOSE,POINT OF CARE 119 MG/DL (70-110)
[2017-10-13 16:13] LABS: GLUCOMETER DEV NAME(LOC) 5S 1M; GLUCOSE,POINT OF CARE 162 MG/DL (70-110)
[2017-10-13 19:58] LABS: GLUCOMETER DEV NAME(LOC) 5S 1M; GLUCOSE,POINT OF CARE 204 MG/DL (70-110)
[2017-10-13] MEDS: BIMATOPROST 0.01% 2.5 ML OPHTHALMIC SOLUTION OU SCH (20:24)
[2017-10-13 20:40] VITALS: BP 150/87
[2017-10-14] VITALS (7 sets, daily range): BP systolic 136–162; BP diastolic 68–97
[2017-10-14 00:08] LABS: GLUCOMETER DEV NAME(LOC) 5N 1P; GLUCOSE,POINT OF CARE 190 MG/DL (70-110)
[2017-10-14] MEDS ORDERED: CefoTEtan DISOD 1 GM/DEXTROSE 50 ML IV SCH (05:00)
[2017-10-14 07:37] LABS: GLUCOMETER DEV NAME(LOC) 5S 1M; GLUCOSE,POINT OF CARE 120 MG/DL (70-110)
[2017-10-14] MEDS: BRIMONIDINE TARTRATE 0.15% 5 ML OPHTHALMIC SOLUTION OU SCH ×2 (08:04→23:20)
[2017-10-14] MEDS: PANTOPRAZOLE SODIUM 40 MG DR TABLET PO SCH (08:05)
[2017-10-14] MEDS: DIAZEPAM 2 MG TABLET PO SCH ×2 (08:05→23:08)
[2017-10-14] MEDS: VITAMIN B COMP/VIT C/FOLIC ACID CAPSULE PO SCH (08:05)
[2017-10-14] MEDS: LATANOPROST 0.005% 2.5 ML OPHTHALMIC SOLUTION OU SCH (08:08)
[2017-10-14] MEDS: DORZOLAMIDE/TIMOLOL 2-0.5% [22.3-6.8MG/ML] 10 ML OPHTHALMIC SOLUTION OU SCH (08:08)
[2017-10-14] MEDS: DILTIAZEM HCL 30 MG TABLET PO SCH ×2 (09:00→23:04)
[2017-10-14] MEDS ORDERED: MANNITOL 25%-12.5 GM/50 ML VIAL IVP PRN (10:15)
[2017-10-14] MEDS ORDERED: LIDOCAINE HCL/PF 1% 2 ML VIAL ID PRN (10:15)
[2017-10-14 11:31] LABS: BASOPHILS % (AUTO) 1.4 % (0.0-2.0); EOSINOPHILS % (AUTO) 7.5 % (1.0-6.0); HEMATOCRIT 36.7 % (36-46); HEMOGLOBIN 12.3 g/dL (12.0-16.0); LYMPHOCYTES % (AUTO) 17.1 % (22.0-44.0); MEAN CORPUSCULAR HEMOGLOBIN 31.5 pg (26.0-34.0); MEAN CORPUSCULAR HGB CONC 33.5 G/dL (31.0-37.0); MEAN CORPUSCULAR VOLUME 94 fL (80-100); MONOCYTES # (AUTO) 0.6 K/uL (0.1-1.0); MONOCYTES % (AUTO) 10.7 % (2.0-9.0); NEUTROPHILS # (AUTO) 3.6 K/uL (1.8-7.7); NEUTROPHILS % (AUTO) 63.3 % (40.0-70.0); PLATELET COUNT (AUTO) 217 K/uL (150-450); RED BLOOD CELL COUNT(AUTO) 3.91 MIL/uL (4.00-5.20); RED CELL DISTRIBUTION WIDTH 14.4 % (11.5-14.5)
[2017-10-14 11:46] LABS: CALCIUM, TOTAL 8.4 mg/dL (8.8-10.5); CREATININE 2.59 mg/dL (0.60-1.30); POTASSIUM 3.3 mmol/L (3.5-5.1)
[2017-10-14] MEDS ORDERED: -HEMODIALYSIS NOTE- MISC SCH (13:00)
[2017-10-14] MEDS ORDERED: CefoTEtan DISOD 1 GM/DEXTROSE 50 ML IV PRN (13:00)
[2017-10-14 15:33] LABS: GLUCOMETER DEV NAME(LOC) 5N 1P; GLUCOSE,POINT OF CARE 142 MG/DL (70-110)
[2017-10-14] MEDS: APIXABAN 5 MG TABLET PO SCH ×2 (17:43→23:03)
[2017-10-14] MEDS ORDERED: LIDOCAINE HCL/PF 1% 2 ML VIAL INJ ONE (17:44)
[2017-10-14] MEDS: BIMATOPROST 0.01% 2.5 ML OPHTHALMIC SOLUTION OU SCH (23:20)
[2017-10-14] MEDS: MUPIROCIN CALCIUM 2% 22 GM OINTMENT NASAL SCH (23:20)
[2017-10-14] MEDS: INSULIN LISPRO 100 UNITS/ML SQ PRN (23:21)
[2017-10-14 23:24] LABS: GLUCOMETER DEV NAME(LOC) 5N 2S; GLUCOSE,POINT OF CARE 130 MG/DL (70-110)
[2017-10-14 23:24] LABS: GLUCOMETER DEV NAME(LOC) 5N 2S; GLUCOSE,POINT OF CARE 147 MG/DL (70-110)
[2017-10-15 01:22] LABS: GLUCOMETER DEV NAME(LOC) 5S 1M; GLUCOSE,POINT OF CARE 149 MG/DL (70-110)
[2017-10-15 04:10] VITALS: BP 148/82
[2017-10-15 07:22] VITALS: BP 136/78
[2017-10-15] MEDS: DORZOLAMIDE/TIMOLOL 2-0.5% [22.3-6.8MG/ML] 10 ML OPHTHALMIC SOLUTION OU SCH (09:00)
[2017-10-15] MEDS: MUPIROCIN CALCIUM 2% 22 GM OINTMENT NASAL SCH (09:00)
[2017-10-15] MEDS: LATANOPROST 0.005% 2.5 ML OPHTHALMIC SOLUTION OU SCH (09:00)
[2017-10-15] MEDS: BRIMONIDINE TARTRATE 0.15% 5 ML OPHTHALMIC SOLUTION OU SCH (09:00)
[2017-10-15] MEDS: DILTIAZEM HCL 30 MG TABLET PO SCH (09:00)
[2017-10-15 11:27] LABS: BASOPHILS % (AUTO) 2.4 % (0.0-2.0); EOSINOPHILS % (AUTO) 6.2 % (1.0-6.0); HEMATOCRIT 36.3 % (36-46); HEMOGLOBIN 12.4 g/dL (12.0-16.0); LYMPHOCYTES # (AUTO) 1.3 K/uL (1.0-4.8); LYMPHOCYTES % (AUTO) 23.7 % (22.0-44.0); MEAN CORPUSCULAR HEMOGLOBIN 32.1 pg (26.0-34.0); MEAN CORPUSCULAR HGB CONC 34.1 G/dL (31.0-37.0); MEAN CORPUSCULAR VOLUME 94 fL (80-100); MONOCYTES # (AUTO) 0.5 K/uL (0.1-1.0); MONOCYTES % (AUTO) 10.3 % (2.0-9.0); NEUTROPHILS % (AUTO) 57.4 % (40.0-70.0); PLATELET COUNT (AUTO) 226 K/uL (150-450); RED BLOOD CELL COUNT(AUTO) 3.87 MIL/uL (4.00-5.20); RED CELL DISTRIBUTION WIDTH 14.7 % (11.5-14.5)
[2017-10-15 11:32] LABS: CALCIUM, TOTAL 8.4 mg/dL (8.8-10.5); CREATININE 3.7 mg/dL (0.60-1.30); POTASSIUM 4.2 mmol/L (3.5-5.1)
[2017-10-15 12:12] LABS: ABG A-A DIFF O2 21.4 mmHg (10-20.0); ABG BASE EXCESS -1.1 mmol/L (-2.0-3.0); ABG HCO3 23.9 mmol/L (22.0-26.0); ABG METHEMOGLOBIN 0.3 % (0.0-1.5); ABG OXYGEN CONTENT 17.4 mL/dL (15.0-23.0); ABG OXYGEN SATURATION 95.6 % (95.0-98.0); ABG OXYHEMOGLOBIN 93.4 % (94.0-100.0); ABG PCO2 36 mmHg (35-45); ABG PH 7.424 (7.35-7.450); ABG TOTAL HEMOGLOBIN 13.2 G/dL (12.0-18.0); O2 DEVICE,BLOOD GAS ROOM AIR (ROOM AIR); PO2, ARTERIAL BG 84.7 mmHg (79.0-87.0); SITE, BLOOD GAS LFT RADIAL; SOURCE, BLOOD GAS ARTERIAL; TEMPERATURE, FAHRENHEIT, BG 98.6 FAHREN (96.0-98.6)
[2017-10-15 12:13] LABS: GLUCOMETER DEV NAME(LOC) 5N 1P; GLUCOSE,POINT OF CARE 115 MG/DL (70-110)
[2017-10-15] MEDS ORDERED: -POST HEMODIALYSIS NOTE- MISC SCH (12:25)
[2017-10-15] MEDS ORDERED: -HEMODIALYSIS NOTE- MISC SCH (12:30)
[2017-10-15] MEDS ORDERED: CefoTEtan DISOD 1 GM/DEXTROSE 50 ML IV PRN (12:30)
[2017-10-15] MEDS: VITAMIN B COMP/VIT C/FOLIC ACID CAPSULE PO SCH (12:47)
[2017-10-15] MEDS: APIXABAN 5 MG TABLET PO SCH (12:47)
[2017-10-15] MEDS: PANTOPRAZOLE SODIUM 40 MG DR TABLET PO SCH (12:49)
[2017-10-15] MEDS: DIAZEPAM 2 MG TABLET PO SCH (12:49)
[2017-10-15 13:08] LABS: GLUCOMETER DEV NAME(LOC) 5N 2S; GLUCOSE,POINT OF CARE 106 MG/DL (70-110)
[2017-10-15 15:30] VITALS: BP 145/99
[2017-10-15] MEDS ORDERED: CEFO2I IV (16:34)
== END 2017-10-15 17:45 | DRG 871 ==
LOC: EMS 13:36 → 5S 21:00 → 5N 10-15 10:04
PROVIDERS: ADMIT Internal Medicine Geriatric Medicine; ATTEND Internal Medicine Geriatric Medicine
PROC: 5A1D70Z Performance of Urinary Filtration, Intermittent, Less than 6 Hours Per Day (ICD-10-PCS; principal; 2017-10-14)
DX: A41.9 Sepsis, unspecified organism (principal); G93.40 Encephalopathy, unspecified; I13.2 Hypertensive heart and chronic kidney disease with heart failure and with stage 5 chronic kidney disease, or end stage renal disease; N18.6 End stage renal disease; E11.22 Type 2 diabetes mellitus with diabetic chronic kidney disease; I48.91 Unspecified atrial fibrillation; E66.2 Morbid (severe) obesity with alveolar hypoventilation; N12 Tubulo-interstitial nephritis, not specified as acute or chronic; E87.2 Acidosis; I50.9 Heart failure, unspecified; F01.50 Vascular dementia, unspecified severity, without behavioral disturbance, psychotic disturbance, mood disturbance, and anxiety; J44.9 Chronic obstructive pulmonary disease, unspecified; B96.20 Unspecified Escherichia coli [E. coli] as the cause of diseases classified elsewhere; D63.1 Anemia in chronic kidney disease; E78.00 Pure hypercholesterolemia, unspecified; H40.9 Unspecified glaucoma; I25.10 Atherosclerotic heart disease of native coronary artery without angina pectoris; Z90.710 Acquired absence of both cervix and uterus; Z99.2 Dependence on renal dialysis; Z88.5 Allergy status to narcotic agent; Z22.322 Carrier or suspected carrier of Methicillin resistant Staphylococcus aureus; Z79.4 Long term (current) use of insulin; S72.92XD Unspecified fracture of left femur, subsequent encounter for closed fracture with routine healing; S32.029D Unspecified fracture of second lumbar vertebra, subsequent encounter for fracture with routine healing; W19.XXXD Unspecified fall, subsequent encounter; Z79.899 Other long term (current) drug therapy; Z86.73 Personal history of transient ischemic attack (TIA), and cerebral infarction without residual deficits; Z80.0 Family history of malignant neoplasm of digestive organs; Z82.3 Family history of stroke; Z82.49 Family history of ischemic heart disease and other diseases of the circulatory system; Z82.5 Family history of asthma and other chronic lower respiratory diseases; Z83.3 Family history of diabetes mellitus; Z68.32 Body mass index [BMI] 32.0-32.9, adult
CPT/HCPCS: 72131; 82306; 82607; 82746; 82805; 83036; 83605; 83735; 84439; 84443; 87040; 87081; 87086; 87340; 90935; 93005; 96374; 96375; 99285; J0696; J2270; J2405; J3490; J7050; J7060

== ENCOUNTER 2017-10-17 12:26 | Emergency (ER) | payer MEDICARE, MEDICAID ==
[~2017-10-17] VITALS: Ht 152.4 cm; Wt 63.6 kg
[~2017-10-17 12:26] MED LIST changes: +CEFO2I IV
[2017-10-17] MEDS ORDERED: INSU100V SQ (12:38)
[2017-10-17] MEDS ORDERED: AUD NEB (12:38)
[2017-10-17 12:48] LABS: GLUCOSE,POINT OF CARE 129 MG/DL (70-110)
[2017-10-17 13:31] LABS: BASOPHILS % (AUTO) 2.8 % (0.0-2.0); EOSINOPHILS % (AUTO) 2.2 % (1.0-6.0); HEMATOCRIT 36.9 % (36-46); HEMOGLOBIN 12.4 g/dL (12.0-16.0); LYMPHOCYTES # (AUTO) 1.3 K/uL (1.0-4.8); MEAN CORPUSCULAR HEMOGLOBIN 31.2 pg (26.0-34.0); MEAN CORPUSCULAR HGB CONC 33.7 G/dL (31.0-37.0); MEAN CORPUSCULAR VOLUME 93 fL (80-100); MONOCYTES # (AUTO) 0.6 K/uL (0.1-1.0); MONOCYTES % (AUTO) 10.7 % (2.0-9.0); NEUTROPHILS # (AUTO) 3.3 K/uL (1.8-7.7); NEUTROPHILS % (AUTO) 60.3 % (40.0-70.0); PLATELET COUNT (AUTO) 245 K/uL (150-450); RED BLOOD CELL COUNT(AUTO) 3.98 MIL/uL (4.00-5.20); RED CELL DISTRIBUTION WIDTH 14.4 % (11.5-14.5)
[2017-10-17 13:43] LABS: INR 1.1 (0.9-1.1); PROTHROMBIN TIME 11.5 SEC (9.4-11.6)
[2017-10-17 13:53] LABS: B-TYPE NATRIURETIC PEPTIDE 1360 pg/mL (0-100)
[2017-10-17 14:15] LABS: ALANINE AMINOTRANSFERASE 16 U/L (12-78); ALKALINE PHOSPHATASE 141 U/L (46-116); ANION GAP 11 mmol/L (8-16); ASPARTATE AMINOTRANSFERASE 18 U/L (15-37); BILIRUBIN,TOTAL 0.5 mg/dL (0.1-1.0); CALCIUM, TOTAL 8.8 mg/dL (8.8-10.5); CARBON DIOXIDE 26 mmol/L (22-29); CHLORIDE 100 mmol/L (98-107); CREATINE KINASE, TOTAL 13 U/L (26-192); GLOMERULAR FILTR. RATE CALC 13 mL/min (>60); GLUCOSE,RANDOM 125 mg/dL (70-110); POTASSIUM 4.2 mmol/L (3.5-5.1); SODIUM SERUM 137 mmol/L (136-145); TOTAL PROTEIN, SERUM 7.6 g/dL (6.4-8.2); UREA NITROGEN, BLOOD 25 mg/dL (7-18)
[2017-10-17 17:49] VITALS: BP 123/74
== END 2017-10-17 18:03 | disposition home or self-care (01) ==
LOC: EMS 12:27
DX: J44.9 Chronic obstructive pulmonary disease, unspecified (principal); I13.2 Hypertensive heart and chronic kidney disease with heart failure and with stage 5 chronic kidney disease, or end stage renal disease; E11.22 Type 2 diabetes mellitus with diabetic chronic kidney disease; N18.6 End stage renal disease; I50.9 Heart failure, unspecified; I25.10 Atherosclerotic heart disease of native coronary artery without angina pectoris; E78.00 Pure hypercholesterolemia, unspecified; Z99.2 Dependence on renal dialysis; Z88.5 Allergy status to narcotic agent; Z79.4 Long term (current) use of insulin
CPT/HCPCS: 70450; 93005; 99285

== ENCOUNTER 2018-04-16 16:25 | Emergency (ER) | payer MEDICARE, MEDICAID ==
[~2018-04-16] VITALS: Ht 167.6 cm; Wt 113.6 kg
[~2018-04-16 16:25] MED LIST changes: +AUD NEB; -BRIM155OS OU; -CEFO2I IV; -INSNOV SQ; +INSU100V SQ
[2018-04-16] MEDS ORDERED: ZOLP5 PO (17:21)
[2018-04-16] MEDS ORDERED: ONDA4 PO (17:21)
[2018-04-16] MEDS ORDERED: DORZ210OS OP (17:21)
[2018-04-16] MEDS ORDERED: INSLAN SQ (17:21)
[2018-04-16] MEDS ORDERED: CHOL200059 PO (17:21)
[2018-04-16] MEDS ORDERED: HYDR10TA31 PO (17:21)
[2018-04-16] MEDS ORDERED: PHOSLOC PO (17:21)
[2018-04-16 17:49] LABS: BASOPHILS % (AUTO) 0.9 % (0.0-2.0); EOSINOPHILS % (AUTO) 4.8 % (1.0-6.0); HEMATOCRIT 33.7 % (36-46); HEMOGLOBIN 11.7 g/dL (12.0-16.0); LYMPHOCYTES # (AUTO) 1.1 K/uL (1.0-4.8); LYMPHOCYTES % (AUTO) 15.4 % (22.0-44.0); MEAN CORPUSCULAR HEMOGLOBIN 33.6 pg (26.0-34.0); MEAN CORPUSCULAR HGB CONC 34.8 G/dL (31.0-37.0); MEAN CORPUSCULAR VOLUME 96 fL (80-100); MONOCYTES # (AUTO) 0.6 K/uL (0.1-1.0); MONOCYTES % (AUTO) 8.4 % (2.0-9.0); NEUTROPHILS # (AUTO) 4.8 K/uL (1.8-7.7); NEUTROPHILS % (AUTO) 70.5 % (40.0-70.0); PLATELET COUNT (AUTO) 220 K/uL (150-450); RED BLOOD CELL COUNT(AUTO) 3.49 MIL/uL (4.00-5.20)
[2018-04-16 17:54] LABS: CALCIUM, TOTAL 8.2 mg/dL (8.8-10.5); CREATININE 3.09 mg/dL (0.60-1.30); POTASSIUM 3.6 mmol/L (3.5-5.1)
[2018-04-16 20:05] VITALS: BP 101/79
== END 2018-04-16 21:06 | disposition home or self-care (01) ==
LOC: EDUNIT# 16:25 → EMS 16:28
DX: I13.11 Hypertensive heart and chronic kidney disease without heart failure, with stage 5 chronic kidney disease, or end stage renal disease (principal); E11.22 Type 2 diabetes mellitus with diabetic chronic kidney disease; I50.9 Heart failure, unspecified; N18.6 End stage renal disease; I95.9 Hypotension, unspecified; E78.00 Pure hypercholesterolemia, unspecified; F03.90 Unspecified dementia, unspecified severity, without behavioral disturbance, psychotic disturbance, mood disturbance, and anxiety; I48.91 Unspecified atrial fibrillation; Z88.5 Allergy status to narcotic agent; Z79.4 Long term (current) use of insulin; Z79.899 Other long term (current) drug therapy; Z99.2 Dependence on renal dialysis
CPT/HCPCS: 70450; 93005